=== PATIENT | female | born 1950 | race Caucasian/White ===

== ENCOUNTER 2020-04-08 20:30 | Inpatient (IN) | payer OTHER, MEDICARE, SELFPAY ==
--- NOTE | ~2020-04-08 | CT_ITS ---
EXAMINATION: CT abdomen pelvis w con EXAM DATE: 04/08/2020 21:38 INDICATION: Low abdominal pain. TECHNIQUE: Spiral CT of the abdomen and pelvis was performed following intravenous injection of 100 m L Omnipaque 350. Axial, coronal and sagittal images were reviewed. The dose-length product (DLP) fo r this examination was 463.28 mGy-cm. The exposure was tailored according to patient size (auto mA e xposure control), and iterative reconstruction (ASIR) was used as additional dose reduction technique . Comparison is made to prior examination from 08/17/2012. FINDINGS: The liver, spleen, adrenal glands and pancreas are unremarkable. The gallbladder is disten ded but otherwise unremarkable. There is no biliary duct dilation. Portal and splenic veins are pat ent. Kidneys enhance symmetrically. There is no hydronephrosis. The uterus is anteverted and morp hologically normal. The bladder is unremarkable. There is no retroperitoneal or pelvic lymphadenop athy. There is mild scattered arteriosclerotic disease. Appendix is dilated, fluid-filled with dehiscent wall in the mid aspect, small foci of extraluminal g as contiguous to this. This appears to be a contained perforation, associated phlegmon without organi zed abscess. The stomach and small bowel are unremarkable. There is expected amount of colonic stoo l. No free intraperitoneal gas. The heart is normal in size. There are no pericardial or pleural effusions. The lung bases are unremarkable. There are no osteoblastic or osteolytic lesions identi fied. IMPRESSION: Acute appendicitis with contained perforation. Reviewed, dictated and finalized at location B.
[2020-04-08 20:34] VITALS: BP 127/64; PULSE 92; RESP 18; TEMP 36.6; O2SAT 99
--- NOTE | 2020-04-08 20:41 | ECG_ITS ---
Measurements Intervals [place] Rate: 86 P: 23 NV: 163 QRS: -5 QRSD: 92 T: 59 QT: 382 QTc: 459 Interpretive Statements SINUS RHYTHM NONSPECIFIC ST & T-WAVE ABNORMALITY- DIFFUSE LEADS BASELINE ARTIFACT- I, II, III, AVR, AVL, AVF, V1-V3 BORDERLINE ECG Electronically Signed On 04-09-2020 6:43:37 CDT by José Echevarria D.O.
[2020-04-08] MEDS: SODIUM CHLORIDE 0.9% IV 1,000 ML 999 ML IV CONT (20:59)
[2020-04-08 21:06] LABS: Basophils Absolute Auto 0.1 K/mm3 (0.0-0.1); Basophils Percent Auto 0.3 % (0.2-1.2); Eosinophils Absolute Auto 0.1 K/mm3 (0-0.3); Eosinophils Percent Auto 0.6 % (0-4.4); Hematocrit 37.4 % (37.0-47.0); Hemoglobin 12.1 g/dL (12.0-15.0); Immature Granulocyte Absolute 0.12 K/mm3 (0.00-0.031); Immature Granulocyte Percent A 0.6 % (0-0.5); Lymphocytes Absolute Auto 1.76 K/mm3 (0.9-3.2); Lymphocytes Percent Auto 8.5 % (18.3-44.2); Mean Corpuscular HGB Conc 32.4 g/dl (32-36); Mean Corpuscular Hemoglobin 30.9 pg (26-34); Mean Corpuscular Volume 95.7 fl (80-100); Monocytes Percent Auto 9.6 % (2.6-8.5); Neutrophils Absolute Auto 16.6 K/mm3 (1.3-6.7); Neutrophils Percent Auto 80.4 % (45.5-73.1); Platelet Count Result 275 k/mm3 (150-375); Red Blood Count 3.91 M/mm3 (4.2-5.4); Red Cell Distribution Width 12.4 % (11.5-14.5); White Blood Count 20.6 K/mm3 (4.5-10.0)
[2020-04-08 21:12] LABS: Add Urine Microscopic? YES; Appearance Urine Clear (Clear); Bilirubin Urine Negative (Negative); Blood Urine 2+ (Negative); Color Urine Yellow (Yellow); Glucose Urine UA Negative (Negative); Ketones Urine Negative (Negative); Leukocyte Esterase Ur 1+ LEU/UL (Negative); Mucus Urine Rare /lpf; Nitrate Urine Negative (Negative); Protein Urine 1+ mg/dL (Negative); Specific Grav Ur 1.018 (1.001-1.035); Squamous Epithelial Cell Urine Many /hpf (Few); Urobilinogen Urine Negative mg/dL (<2.0)
[2020-04-08 21:18] LABS: Alanine Aminotransferase 10 U/L (4-35); Albumin Level 4.1 g/dL (3.5-5.1); Alkaline Phosphatase 95 U/L (38-126); Aspartate Amino Transferase 16 U/L (14-36); Bilirubin,Total 0.4 mg/dL (0.2-1.3); Blood Urea Nitrogen 26 mg/dL (7-17); Calcium 8.9 mg/dL (8.4-10.2); Carbon Dioxide 23 mmol/L (22-30); Chloride 103 mmol/L (98-107); Estimated CRCL calculation 27 ml/min; Estimated Glomerular Filt Rate 32; Glucose 121 mg/dL (65-105); Lipase 27 U/L (23-300); Potassium 3.2 mmol/L (3.4-5.0); Sodium 138 mmol/L (137-145)
[2020-04-08] MEDS: HYDROMORPHONE HCL 1 MG/ML INJ 0.5 MG IV PUSH (22:09)
[2020-04-08] MEDS: ONDANSETRON INJ 4 MG/2 ML VIAL IV PUSH (22:09)
--- NOTE | 2020-04-08 22:30 | ED.ABDPAIN ---
HPI - Abdominal Pain General Chief Complaint: Abdominal Pain Stated Complaint: low abd pain Time Seen by Provider: 04/08/20 20:41 Source: patient Mode of arrival: ambulatory Limitations: no limitations History of Present Illness HPI narrative: 69 years old white female history of hypertension, hyperlipidemia, hypothyroidism. Presents with right lower quadrant pain started yesterday morning. Sharp, constant, gradually getting worse. Patient denies any aggravating or relieving factors. Patient denies radiation of pain, fever, chillsvomiting. Patient reports may be some nausea every now and then. Patient smokes occasionally and drinks occasionally. She is on aspirin.. No history of abdominal surgery. Patient drove herself to the emergency room, no family member at the bedside Related Data Home Medications Medication Instructions Recorded Confirmed alendronate 70 mg tablet 70 mg PO WEEKLY 09/26/19 ascorbate calcium (vitamin C) 500 500 mg PO DAILY 09/26/19 mg tablet aspirin 81 mg tablet,delayed 81 mg PO DAILY 09/26/19 release Allergies Allergy/AdvReac Type Severity Reaction Status Date / Time No Known Allergies Allergy Verified 04/08/20 20:37 Review of Systems Review of Systems: Narrative: CONSTITUTIONAL: Denies fever, chills, or sweats. EYES: Denies visual changes, redness, or discharge. ENT: Denies rhinorrhea, congestion, sore throat, or otalgia. CARDIOVASCULAR: Denies chest pain, palpitations, or edema. RESPIRATORY: Denies cough or dyspnea. GASTROINTESTINAL: Denies abdominal pain, nausea, vomiting, or diarrhea. GENITOURINARY: Denies dysuria or hematuria. SKIN: Denies rash or itching. MUSCULOSKELETAL: Denies back pain, joint pain, or myalgia. NEUROLOGIC: Denies headache, numbness, or weakness. PSYCHIATRIC: Denies anxiety or depression. [facility] Surgical History Surgical History H/O cataract extraction H/O tubal ligation Hx of tonsillectomy Family History Family History Mother Diabetes mellitus Hypertension Family history of coronary artery disease Father Family history of malignant neoplasm of urinary bladder Social History Social History Smoking status: Current every day smoker Alcohol intake: current Exam Narrative: Exam Narrative: General appearance: Well-developed, well-nourished Skin: Normal color Head: Normocephalic, nontraumatic Eyes: Clear conjunctiva ENT: Oropharynx normal, ears normal, nose normal Neck: Supple, nontender Chest and respiratory: Airway patent, no respiratory distress, no accessory muscle use Heart: Regular rate/rhythm Abdomen: Soft, mild tenderness with deep palpation right lower quadrant, no guarding or rebound, no organomegaly, quiet bowel sounds Vascular: Normal peripheral pulses, normal capillary refill. Musculoskeletal: Normal range of motion, nontender back Neurologic: Alert and oriented ?3, [employer] is normal as tested, no gross motor deficit Course Course Emergency Course: Stable Vital Signs Vital signs: Vital Signs Temperature 36.6 C 04/08/20 20:34 Pulse Rate 92 04/08/20 20:34 Respiratory Rate 18 04/08/20 20:34 Blood Pressure 127/64 04/08/20 20:34 Pulse Oximetry 99 04/08/20 20:34 Temperature 36.6 C 04/08/20 20:34 Pulse Rate 92 04/08/20 20:34 Respiratory Rate 18 04/08/20 20:34 Blood Pressure 127/64 04/08/20 20:34 Pulse Oximetry 99 04/08/20 20:34 MDM - Abdominal Pain MDM Narrative Medical decision making narrative: Patient presents with right lower quadrant pain, acute appendici
[2020-04-08 23:10] VITALS: BP 138/77; PULSE 77; RESP 18; TEMP 36.7; O2SAT 99
[2020-04-08] MEDS: POTASSIUM CHLORIDE 20 MEQ PACKET (FOR LIQUID) 40 MEQ PO (23:11)
[2020-04-08 23:20] VITALS: BP 113/54; PULSE 98; RESP 18; TEMP 36.4; O2SAT 95; BMI 29.8
--- NOTE | 2020-04-08 23:34 | ADMGEN ---
This patient, Tiffany Canales, was admitted to 3 [facility] Surg Room 313-01. Patient/family oriented to hospital policies and general routines including ID bracelet, bed and alarms, visiting hours, pain management, procedures, bathroom and other care routines, personal items, smoking policy, room service/diet, and visiting hours. Valuables list has been completed. Information on how to activate the Rapid Response Team has been discussed. Patient/Family are encouraged to report perceived risks to care and to ask questions if they do not understand what they are told or what they should do.
[2020-04-09] MEDS: HYDROMORPHONE HCL 1 MG/ML INJ 0.5 MG IV PUSH ×2 (00:41→05:47)
[2020-04-09] MEDS: LACTATED RINGERS 1,000 ML 150 ML IV CONT ×2 (00:42→05:45)
[2020-04-09 05:50] LABS: Basophils Percent Auto 0.3 % (0.2-1.2); Eosinophils Absolute Auto 0.1 K/mm3 (0-0.3); Eosinophils Percent Auto 0.6 % (0-4.4); Hematocrit 33.5 % (37.0-47.0); Hemoglobin 10.5 g/dL (12.0-15.0); Immature Granulocyte Absolute 0.09 K/mm3 (0.00-0.031); Immature Granulocyte Percent A 0.7 % (0-0.5); Lymphocytes Absolute Auto 1.15 K/mm3 (0.9-3.2); Lymphocytes Percent Auto 9.1 % (18.3-44.2); Mean Corpuscular HGB Conc 31.3 g/dl (32-36); Mean Corpuscular Hemoglobin 30.8 pg (26-34); Mean Corpuscular Volume 98.2 fl (80-100); Monocytes Absolute Auto 1.1 K/mm3 (0.1-0.6); Monocytes Percent Auto 8.7 % (2.6-8.5); Neutrophils Absolute Auto 10.2 K/mm3 (1.3-6.7); Neutrophils Percent Auto 80.6 % (45.5-73.1); Platelet Count Result 221 k/mm3 (150-375); Red Blood Count 3.41 M/mm3 (4.2-5.4); Red Cell Distribution Width 12.5 % (11.5-14.5); White Blood Count 12.7 K/mm3 (4.5-10.0)
[2020-04-09 06:00] VITALS: BP 102/50; PULSE 73; RESP 18; TEMP 36.4; O2SAT 95
[2020-04-09 06:07] LABS: Blood Urea Nitrogen 20 mg/dL (7-17); Calcium 7.9 mg/dL (8.4-10.2); Carbon Dioxide 25 mmol/L (22-30); Chloride 109 mmol/L (98-107); Estimated CRCL calculation 38 ml/min; Estimated Glomerular Filt Rate 44; Glucose 95 mg/dL (65-105); Potassium 3.8 mmol/L (3.4-5.0); Sodium 140 mmol/L (137-145)
[2020-04-09] MEDS: ATORVASTATIN 10 MG TABLET PO (10:17)
[2020-04-09] MEDS: FAMOTIDINE 20 MG/2 ML VIAL IV PUSH ×2 (10:18→21:07)
[2020-04-09] MEDS: ENOXAPARIN 40 MG/0.4 ML SYRINGE SUB-Q (10:18)
[2020-04-09] MEDS: CITALOPRAM HYDROBROMIDE 20 MG TABLET PO (10:18)
[2020-04-09] MEDS: LEVOTHYROXINE SODIUM 50 MCG TABLET PO (10:19)
[2020-04-09] MEDS: lisinopriL 5 MG TABLET PO (10:19)
[2020-04-09 10:20] VITALS: PULSE 73
[2020-04-09] MEDS: METOPROLOL TARTRATE 25 MG TABLET PO (10:20)
[2020-04-09] MEDS: KCL 20 MEQ/LR 1,000 ML 100 ML IV CONT ×2 (10:28→22:43)
--- NOTE | 2020-04-09 12:04 | PM.IMHP ---
H&P: HPI History of Present Illness Chief complaint: Ruptured appendicitis Narrative: Tiffany Canales is a 69 year old female Came to the emergency room last night with complaints of 36 hours of abdominal pain in the right lower quadrant. This started Thursday morning. It was sharp constant and getting worse. She did not notice any fever or chills but was having occasional nausea. No vomiting. In the emergency room, she was noted to have some tenderness in the right lower quadrant. She was afebrile with normal vital signs. Her white blood cell count was elevated to 20,000. she had a CT scan of the abdomen and pelvis which suggested acute appendicitis with a walled-off appendiceal perforation and some free air in the vicinity of the appendix. The patient appeared nontoxic with normal vital signs. Her creatinine was 1.6. She was given IV fluids, analgesics and started on Zosyn antibiotics. This morning she is still having some pain but it responds well to analgesics. Her white count has decreased to 12,700. Her creatinine is decreased to 1.2. She is admitted now with right lower quadrant pain and evidence of acute perforated appendicitis that is walled off. Her only previous abdominal surgery was a tubal ligation. Review of Systems Review of Systems: All systems reviewed & are unremarkable except as noted in HPI and below Constitutional: Constitutional: Denies headache(s) Eyes: Eyes: Reports other ( History of retinal vein branch occlusion earlier this year) ENT: Denies headache(s) Cardiovascular: Cardiovascular: Denies chest pain and Denies dyspnea Respiratory: Respiratory: Denies cough and Denies dyspnea Gastrointestinal: Gastrointestinal: Reports as per HPI, Reports abdominal pain, Denies bloating, Denies constipation, Denies nausea and Denies vomiting Neurologic: Denies confusion and Denies headache(s) Psychiatric: Psychiatric: Denies confusion [facility] Surgical History Surgical History H/O cataract extraction H/O tubal ligation Hx of tonsillectomy Family History Family History Mother Diabetes mellitus Hypertension Family history of coronary artery disease Father Family history of malignant neoplasm of urinary bladder Social History Social History Smoking status: Current some day smoker Tobacco type: cigarettes Additional smoking assessment comments: pt states social smoking Alcohol intake: current Drinks per week: 5 Substance use: never Gender identity (if verbalized by the patient): Female Spiritual care concerns: No Meds Home Medications and Allergies Home Medications Medication Instructions Recorded Confirmed Type ascorbate calcium (vitamin C) 500 500 mg PO DAILY 09/26/19 04/09/20 History mg tablet aspirin 81 mg tablet,delayed 81 mg PO HS 09/26/19 04/09/20 History release atorvastatin 10 mg tablet 10 mg PO DAILY #90 tablet 10/17/19 04/09/20 Rx cholecalciferol (vitamin D3) 25 2,000 unit PO DAILY #90 cap 10/17/19 04/08/20 Rx mcg (1,000 unit) capsule citalopram 20 mg tablet 20 mg PO DAILY #90 tablet 10/17/19 04/08/20 Rx furosemide 20 mg tablet 20 mg PO QAM #90 tablet 10/17/19 04/08/20 Rx levothyroxine 50 mcg tablet 50 mcg PO DAILY #90 tablet 10/17/19 04/08/20 Rx metoprolol tartrate 25 mg tablet 25 mg PO DAILY #90 tablet 10/17/19 04/08/20 Rx lisinopril 10 0.5 tablet PO DAILY #90 tablet 03/02/20 04/08/20 Rx mg-hydrochlorothiazide 12.5 mg tablet amitriptyline 25 mg PO HS 04/09/20 04/09/20 History clonazepam 0.5 mg PO HS 04/09/20 04/08/20 History Allergies Allergy/AdvReac Type Severity Reaction Status Date / Time No Known Allergies Allergy Verified 04/08/20 20:37 Vital Signs Vital Signs - 24 hr 04/08/20 20:34 04/08/20 23:10 04/08/20 23:20 Temperature 36.6 C 36.7 C 36.4 C Pulse Rate 92 77
[2020-04-09] MEDS: hydroCHLOROthiazide 6.25 MG TABLET PO (12:45)
[2020-04-09 14:00] VITALS: BP 105/61; PULSE 76; RESP 18; TEMP 37.1; O2SAT 97
[2020-04-09] MEDS: MORPHINE SULFATE 2 MG/ML INJ IV PUSH ×2 (15:28→21:11)
[2020-04-09] MEDS: AMITRIPTYLINE HCL 25 MG TABLET PO (21:07)
[2020-04-09] MEDS: ASPIRIN 81 MG ENTERIC TABLET PO (21:07)
[2020-04-09] MEDS: CLONAZEPAM 0.5 MG TAB PO (21:07)
[2020-04-09 22:10] VITALS: BP 117/46; PULSE 64; RESP 18; TEMP 36.6; O2SAT 98
[2020-04-10] VITALS (13 sets, daily range): BP systolic 100–140; BP diastolic 50–79; PULSE 59–88; RESP 12–20; TEMP 36.6–37.6; O2SAT 92–100
[2020-04-10] MEDS: LEVOTHYROXINE SODIUM 50 MCG TABLET PO (06:20)
[2020-04-10] MEDS: METOPROLOL TARTRATE 25 MG TABLET PO (06:20)
[2020-04-10 06:36] LABS: Hemoglobin 10.4 g/dL (12.0-15.0); Mean Corpuscular HGB Conc 31.5 g/dl (32-36); Mean Corpuscular Hemoglobin 31.2 pg (26-34); Mean Corpuscular Volume 99.1 fl (80-100); Mean Platelet Volume 10.2 fl (7.4-10.4); Platelet Count Result 230 k/mm3 (150-375); Red Blood Count 3.33 M/mm3 (4.2-5.4); Red Cell Distribution Width 12.4 % (11.5-14.5)
[2020-04-10] MEDS: MORPHINE SULFATE 2 MG/ML INJ IV PUSH (06:54)
[2020-04-10 06:55] LABS: Blood Urea Nitrogen 11 mg/dL (7-17); Calcium 8.4 mg/dL (8.4-10.2); Carbon Dioxide 28 mmol/L (22-30); Chloride 109 mmol/L (98-107); Estimated CRCL calculation 45 ml/min; Estimated Glomerular Filt Rate 55; Glucose 87 mg/dL (65-105); Potassium 4.1 mmol/L (3.4-5.0); Sodium 140 mmol/L (137-145)
--- NOTE | 2020-04-10 07:23 | PM.PNGS ---
Progress Note: A&P Assessment and Plan (1) Perforated appendix: Code(s): K35.32 - Acute appendicitis with perforation and localized peritonitis, without abscess Status: Acute Assessment and Plan: Although white count is now normal and creatinine is normal, patient still having pain and tenderness with peritoneal signs in the right mid abdomen where she has been tender since admission. She still is taking pain medication. I do not think she is improving adequately with medical therapy and will go ahead with laparoscopic appendectomy this morning. I did discuss the procedure with her. She is fully agreeable to going ahead. The procedure the risks the benefits the usual recovery and the possibility of a drain after surgery have all been discussed. All questions were answered. (2) Essential (primary) hypertension: Code(s): I10 - Essential (primary) hypertension Status: Chronic Assessment and Plan: continue to monitor (3) Smoker: Code(s): F17.200 - Nicotine dependence, unspecified, uncomplicated Status: Chronic Assessment and Plan: Increases surgical risk (4) CHANTAL (acute kidney injury): Code(s): N17.9 - Acute kidney failure, unspecified Status: Resolved Subjective Subjective Date/Time Seen: 04/10/20 07:23 Patient reports: still having pain (Patient still having quite a bit of right mid abdominal pain. Taking pain meds.) and afebrile Review of Systems Review of Systems: All systems reviewed & are unremarkable except as noted in HPI and below Constitutional: Constitutional: Denies headache(s) Cardiovascular: Cardiovascular: Denies chest pain and Denies dyspnea Respiratory: Respiratory: Denies cough and Denies dyspnea Gastrointestinal: Gastrointestinal: Reports as per HPI Neurologic: Denies confusion and Denies headache(s) Exam Const: General: comfortable and no acute distress; No confusion Orientation/consciousness: patient oriented x3 and No confusion GI: Inspection: non-distended GI Palp: Yes Soft to palpation, Yes Tenderness to palpation present (GI) ( Right mid abdomen, same place as before, really no better.), Yes Guarding due to palpation present (GI) and No Rebound tenderness present Auscultation: normal bowel sounds Neuro: General: patient oriented x3, no focal motor deficits and No confusion Psych: Affect: normal affect Insight: Good insight present (Psych) Judgement: Good judgement present (Psych) Objective Data Vital Signs Vital Signs: Vital Signs - 24 hr 04/09/20 10:20 04/09/20 14:00 04/09/20 22:10 Temperature 37.1 C 36.6 C Pulse Rate 73 76 64 Respiratory Rate 18 18 Blood Pressure 105/61 117/46 L Pulse Oximetry 97 98 04/10/20 06:00 04/10/20 06:20 Temperature 36.9 C Pulse Rate 70 64 Respiratory Rate 18 Blood Pressure 116/54 L Pulse Oximetry 98 Intake/Output Intake/Output: Intake & Output 04/07/20 04/08/20 04/09/20 04/10/20 23:59 23:59 23:59 23:59 Intake Total 1050 3286 520 Output Total 450 1000 Balance 1050 1906 -480 Meds/Results Medications: Active Medications Generic Name Dose Route Start Last Admin Trade Name Freq PRN Reason Stop Dose Admin Acetaminophen 500 mg 04/09/20 08:09 Tylenol Tablet PO Q6H PRN Mild Pain (1-3) or Fever Amitriptyline HCl 25 mg 04/09/20 21:00 04/09/20 21:07 Elavil PO 25 mg HS XIOMARA Administration Aspirin 81 mg 04/09/20 21:00 04/09/20 21:07 Aspirin Ec PO 81 mg HS XIOMARA Administration Atorvastatin Calcium 10 mg 04/09/20 09:00 04/09/20 10:17 Lipitor PO 10 mg DAILY XIOMARA Administration Citalopram Hydrobromide 20 mg 04/09/20 09:00 04/09/20 10:18 Celexa PO 20 mg DAILY XIOMARA Administration Clonazepam 0.5 mg 04/09/20 21:00 04/09/20 21:07 Klonopin Tablet PO 0.5 mg HS XIOMARA Administration Enoxaparin Sodium 40 mg 04/09/20 09:00 04/09/20 10:18 Lovenox SUB-Q 40 mg DAILY XIOMARA Admini
[2020-04-10] MEDS: LACTATED RINGERS 1,000 ML 30 ML IV CONT ×2 (08:03→11:11)
--- NOTE | 2020-04-10 08:18 | WPDANESEPPF ---
Anes - Initial Pre Proc Eval Procedure: Operation Date: 04/10/20 09:00 Proposed Procedures p Laparoscopic Appendectomy - Shaheen Wu MD Date/Time: 04/10/20 08:18 Surgeon: Shaheen Wu MD Pre Op Diagnosis: Perforated appendix, Leukocytosis Patient Data Age: 69 Gender: F Height: 1.6 m Weight: 76.4 kg Last Vital Signs Temp 37.2 C 04/10/20 07:59 Pulse 62 04/10/20 07:59 Resp 16 04/10/20 07:59 BP 115/60 04/10/20 07:59 Pulse Ox 96 04/10/20 07:59 Allergies Allergy/AdvReac Type Severity Reaction Status Date / Time No Known Allergies Allergy Verified 04/08/20 20:37 Home Medications Medication Instructions Recorded Confirmed Type ascorbate calcium (vitamin C) 500 500 mg PO DAILY 09/26/19 04/09/20 History mg tablet aspirin 81 mg tablet,delayed 81 mg PO HS 09/26/19 04/09/20 History release atorvastatin 10 mg tablet 10 mg PO DAILY #90 tablet 10/17/19 04/09/20 Rx cholecalciferol (vitamin D3) 25 2,000 unit PO DAILY #90 cap 10/17/19 04/08/20 Rx mcg (1,000 unit) capsule citalopram 20 mg tablet 20 mg PO DAILY #90 tablet 10/17/19 04/08/20 Rx furosemide 20 mg tablet 20 mg PO QAM #90 tablet 10/17/19 04/08/20 Rx levothyroxine 50 mcg tablet 50 mcg PO DAILY #90 tablet 10/17/19 04/08/20 Rx metoprolol tartrate 25 mg tablet 25 mg PO DAILY #90 tablet 10/17/19 04/08/20 Rx lisinopril 10 0.5 tablet PO DAILY #90 tablet 03/02/20 04/08/20 Rx mg-hydrochlorothiazide 12.5 mg tablet amitriptyline 25 mg PO HS 04/09/20 04/09/20 History clonazepam 0.5 mg PO HS 04/09/20 04/08/20 History Laboratory Tests 04/10/20 04/10/20 06:06 06:06 WBC 9.0 K/mm3 K/mm3 (4.5-10.0) RBC 3.33 M/mm3 L M/mm3 (4.2-5.4) Hgb 10.4 g/dL L g/dL (12.0-15.0) Hct 33.0 % L % (37.0-47.0) MCV 99.1 fl fl (80-100) MCH 31.2 pg pg (26-34) MCHC 31.5 g/dl L g/dl (32-36) RDW 12.4 % % (11.5-14.5) Plt Count 230 k/mm3 k/mm3 (150-375) MPV 10.2 fl fl (7.4-10.4) Sodium 140 mmol/L mmol/L (137-145) Potassium 4.1 mmol/L mmol/L (3.4-5.0) Chloride 109 mmol/L H mmol/L (98-107) Carbon Dioxide 28 mmol/L mmol/L (22-30) BUN 11 mg/dL D mg/dL (7-17) Creatinine 1.00 mg/dL mg/dL (0.7-1.0) Estim Creat Clear Calc 45 ml/min ml/min Estimated GFR 55 L (59 - ) Glucose 87 mg/dL mg/dL (65-105) Calcium 8.4 mg/dL mg/dL (8.4-10.2) Patient hx anesthesia problems: none Family hx anesthesia problems: none PMFSH Surgical History Surgical History H/O cataract extraction H/O tubal ligation Hx of tonsillectomy Family History Family History Mother Diabetes mellitus Hypertension Family history of coronary artery disease Father Family history of malignant neoplasm of urinary bladder Social History Social History Smoking status: Current some day smoker Tobacco type: cigarettes Additional smoking assessment comments: pt states social smoking Alcohol intake: current Drinks per week: 5 Substance use: never Gender identity (if verbalized by the patient): Female Spiritual care concerns: No Anes - Eval Final PreProcedure Day of Procedure 04/10/20 08:18 Patient weight: overweight Heart: regular rate and rhythm Lungs: clear to auscultation and normal air movement Airway: Mallampati scale class III Neurological: alert and oriented Last oral intake: >/= 8 hours ASA classification: III Emergent: no Anesthetic plan: proceed Anesthesia type and monitoring: general ETT and standard monitoring Informed Consent: The patient's anesthetic plan and its attendant risks and benefits were discussed with the patient/family/POA. Questions were solicited and answers provided to the satisfaction of the patient/family/
--- NOTE | 2020-04-10 08:41 | SUR.PREOP ---
Up to bathroom.
[2020-04-10] MEDS: BUPIVACAINE/EPINEPHRINE 0.5% 30 ML VIAL INFILTRATE (09:36)
--- NOTE | 2020-04-10 11:00 | SUR.OPER ---
Ebl=50ml
--- NOTE | 2020-04-10 11:40 | PM.PROC ---
Procedure Note - Detailed Date of procedure: 04/10/20 Pre-op diagnosis: Perforated appendix Ruptured appendicitis Post-op diagnosis: same Procedure performed: laparoscopic appendectomy for ruptured appendicitis Description of procedure: patient was taken to the operating room placed in a supine position. She was induced into general anesthesia. The entire abdomen was prepped and draped. Trocars were placed in the usual fashion using 0.5% Marcaine with epinephrine and applied Medical optical trocars. Three trocars were placed initially all along the left side of the abdomen. The left lower quadrant trocar was a 10 11 port. we then insufflated and placed the patient in Trendelenburg with the right side elevated. 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 There was also additional adhesions binding the ascending colon and the appendix retroperitoneally. As expected on the CT scan, the appendix was walled off by surrounding structures. I placed an additional 5 mm port in the right upper quadrant. With blunt dissection and some cautery, I was able to start the dissection of the appendix. The terminal ileum was forming the medial wall of the contained perforation. This was gently dissected away. Cautery was used for hemostasis. Then when the appendix was exposed, I tried to elevate the proximal portion of the appendix and it came apart at the area where it had perforated. There was a lot of gangrenous change and inflammatory change as 1 might expect. I did mobilize the ascending colon somewhat so that the cecum and appendix would be more accessible. The ascending colon actually headed towards the feet and walled off the appendix at its lateral aspect. This required very careful dissection and was difficult to recognize initially. As dissection was continued however I was able to remove the gangrenous appendix fragments from the ascending colon. After freeing mesoappendix and all of the appendix other than the initial 1 to 1-1/2 cm, I removed these pieces of appendix in an Endo-Catch bag. This left only the origin of the appendix and possibly another cm or cm and a half of the very proximal appendix. I mobilized the cecum in this area. I replaced the 10 11 left lower quadrant port with a 12 mm port. an Endo-NATALIE was then used to amputate the into the cecum containing the appendiceal stump. This went well. There was really no bleeding from the staple line. The cecum and appendiceal stump were also placed in an Endo-Catch bag and retrieved from the left lower quadrant. We then replaced the left lower quadrant trocar. The area of the walled-off appendix was repeatedly irrigated and suctioned. I inspected the area thoroughly and repeatedly for any signs of bowel injury, enteric content, or bleeding. None was seen. Once the area was as clean as I could make it with irrigation and suctioning, I placed a 19 Faroese Sergio drain through the right upper quadrant trocar. The drain was then positioned in the location where the appendix had been walled off. The drain was sutured to the skin with 2 0 silk. We closed the 12 mm left lower quadrant port at the fascial level with a Abhinav cone and Abhinav Arslan suture pass device. 0 Vicryl was used for this. One last check of the area of the appendiceal dissection was done. All looked satisfactory. We then evacuated CO2 and removed the remaining trocar sleeves. The drain was placed to bulb suction. Skin incisions were closed with subcuticular 4 O Monocryl skin suture. The wounds were dressed with Exofin surgical adhesive. A drain sponge was placed over the FABRICE drain exit site. The patient was awakened and taken to recovery in good condition. Sponge and needle counts were correct x2. No complications were noted. The patient tolerated the procedure well. Anesthesia: GETA and MAC ( 0.5% Marcain
[2020-04-10] MEDS: ONDANSETRON INJ 4 MG/2 ML VIAL IV PUSH (11:47)
[2020-04-10] MEDS: CITALOPRAM HYDROBROMIDE 20 MG TABLET PO (13:17)
[2020-04-10] MEDS: lisinopriL 5 MG TABLET PO (13:18)
[2020-04-10] MEDS: FUROSEMIDE 20 MG TABLET PO (13:18)
[2020-04-10] MEDS: ENOXAPARIN 40 MG/0.4 ML SYRINGE SUB-Q (13:19)
[2020-04-10] MEDS: FAMOTIDINE 20 MG/2 ML VIAL IV PUSH ×2 (13:19→20:30)
[2020-04-10] MEDS: ATORVASTATIN 10 MG TABLET PO (13:19)
[2020-04-10] MEDS: hydroCHLOROthiazide 6.25 MG TABLET PO (14:15)
[2020-04-10] MEDS: KCL 20 MEQ/LR 1,000 ML 100 ML IV CONT (16:26)
[2020-04-10] MEDS: AMITRIPTYLINE HCL 25 MG TABLET PO (20:30)
[2020-04-10] MEDS: CLONAZEPAM 0.5 MG TAB PO (20:30)
[2020-04-10] MEDS: ASPIRIN 81 MG ENTERIC TABLET PO (20:30)
[2020-04-11] VITALS: BP 121/60; PULSE 81; RESP 20; TEMP 36.8; O2SAT 100
[2020-04-11] MEDS: KCL 20 MEQ/LR 1,000 ML 100 ML IV CONT (02:02)
[2020-04-11 06:00] VITALS: BP 127/67; PULSE 78; RESP 16; TEMP 36.6; O2SAT 94
[2020-04-11] MEDS: LEVOTHYROXINE SODIUM 50 MCG TABLET PO (06:14)
[2020-04-11 06:42] LABS: Hematocrit 30.9 % (37.0-47.0); Hemoglobin 9.8 g/dL (12.0-15.0); Mean Corpuscular HGB Conc 31.7 g/dl (32-36); Mean Corpuscular Hemoglobin 31.2 pg (26-34); Mean Corpuscular Volume 98.4 fl (80-100); Mean Platelet Volume 10.3 fl (7.4-10.4); Platelet Count Result 260 k/mm3 (150-375); Red Blood Count 3.14 M/mm3 (4.2-5.4); Red Cell Distribution Width 12.3 % (11.5-14.5); White Blood Count 10.9 K/mm3 (4.5-10.0)
[2020-04-11 06:55] LABS: Blood Urea Nitrogen 12 mg/dL (7-17); Calcium 8.4 mg/dL (8.4-10.2); Carbon Dioxide 26 mmol/L (22-30); Chloride 104 mmol/L (98-107); Estimated CRCL calculation 38 ml/min; Estimated Glomerular Filt Rate 44; Glucose 126 mg/dL (65-105); Potassium 4.5 mmol/L (3.4-5.0); Sodium 138 mmol/L (137-145)
--- NOTE | 2020-04-11 07:28 | PM.PNGS ---
Progress Note: A&P Assessment and Plan (1) Perforated appendix: Code(s): K35.32 - Acute appendicitis with perforation and localized peritonitis, without abscess Status: Acute Assessment and Plan: doing well postop day 1. Advance to soft diet. Continue IV antibiotics. Increase activity. Recheck labs again tomorrow. Subjective Subjective Date/Time Seen: 04/11/20 07:28 Post Op day: 1 Patient reports: no new complaints, feels better, tolerating liquids well and afebrile Review of Systems Review of Systems: All systems reviewed & are unremarkable except as noted in HPI and below Constitutional: Constitutional: Denies headache(s) Cardiovascular: Cardiovascular: Denies chest pain and Denies dyspnea Respiratory: Respiratory: Denies cough and Denies dyspnea Gastrointestinal: Gastrointestinal: Reports as per HPI Exam Const: General: comfortable and no acute distress; No confusion Orientation/consciousness: patient oriented x3 and No confusion GI: Inspection: non-distended and incision ( all incisions healing well) GI Palp: Yes Soft to palpation, Yes Tenderness to palpation present (GI) ( incisional tenderness), No Guarding due to palpation present (GI) and No Rebound tenderness present Auscultation: normal bowel sounds Neuro: General: patient oriented x3, no focal motor deficits and No confusion Extrem: General: no calf tenderness and no edema Psych: Affect: normal affect Insight: Good insight present (Psych) Judgement: Good judgement present (Psych) Objective Data Vital Signs Vital Signs: Vital Signs - 24 hr 04/10/20 07:59 04/10/20 11:11 04/10/20 11:26 Temperature 37.2 C 36.8 C Pulse Rate 62 65 63 Respiratory Rate 16 18 17 Blood Pressure 115/60 114/50 L 100/58 L Pulse Oximetry 96 100 98 04/10/20 11:41 04/10/20 11:56 04/10/20 12:11 Temperature Pulse Rate 63 59 L 64 Respiratory Rate 13 14 12 Blood Pressure 104/56 L 112/60 102/59 L Pulse Oximetry 95 94 92 04/10/20 12:28 04/10/20 12:50 04/10/20 13:35 Temperature 36.6 C Pulse Rate 63 64 66 Respiratory Rate 15 18 18 Blood Pressure 115/62 119/62 140/59 L Pulse Oximetry 96 98 96 04/10/20 18:12 04/10/20 20:00 06/24/20 00:00 Temperature 37.6 C 36.6 C 36.8 C Pulse Rate 88 80 81 Respiratory Rate 16 20 20 Blood Pressure 120/79 133/63 121/60 Pulse Oximetry 100 99 100 04/11/20 06:00 Temperature 36.6 C Pulse Rate 78 Respiratory Rate 16 Blood Pressure 127/67 Pulse Oximetry 94 Intake/Output Intake/Output: Intake & Output 04/08/20 04/09/20 04/10/20 04/11/20 23:59 23:59 23:59 23:59 Intake Total 1050 3286 3750 1426 Output Total 450 1840 1230 Balance 1050 2836 1910 196 Meds/Results Medications: Active Medications Generic Name Dose Route Start Last Admin Trade Name Freq PRN Reason Stop Dose Admin Acetaminophen 500 mg 04/09/20 08:09 Tylenol Tablet PO Q6H PRN Mild Pain (1-3) or Fever Hydrocodone Bitart/Acetaminophen 1 tab 04/10/20 12:34 [place] 5-325 Mg PO Q4H PRN Pain Rated 4-6 Hydrocodone Bitart/Acetaminophen 1 tab 04/10/20 12:34 04/11/20 06:13 [place] 10-325 Mg PO 1 tab Q4H PRN Administration Pain Rated 7-10 Amitriptyline HCl 25 mg 04/09/20 21:00 04/10/20 20:30 Elavil PO 25 mg HS XIOMARA Administration Aspirin 81 mg 04/09/20 21:00 04/10/20 20:30 Aspirin Ec PO 81 mg HS XIOMARA Administration Atorvastatin Calcium 10 mg 04/09/20 09:00 04/10/20 13:19 Lipitor PO 10 mg DAILY XIOMARA Administration Citalopram Hydrobromide 20 mg 04/09/20 09:00 04/10/20 13:17 Celexa PO 20 mg DAILY XIOMARA Administration Clonazepam 0.5 mg 04/09/20 21:00 04/10/20 20:30 Klonopin Tablet PO 0.5 mg HS XIOMARA Administration Enoxaparin Sodium 40 mg 04/09/20 09:00 04/10/20 13:19 Lovenox SUB-Q 40 mg DAILY XIOMARA Administration Furosemide 20 mg 04/09/20 09:00 04/10/20 13:18 Lasix Tablet PO 20 mg QAM XIOMARA Administration Hyd
--- NOTE | 2020-04-11 08:16 | WPDANESPN ---
Anes - Prog Note Post-Op Date/Time: 04/11/20 08:16 Cardiovascular status: normal Respiratory status: normal Airway patency: baseline Mental status: baseline Post-Op hydration status: normal Vital Signs: Last Vital Signs Temp 36.6 C 04/11/20 06:00 Pulse 78 04/11/20 06:00 Resp 16 04/11/20 06:00 BP 127/67 04/11/20 06:00 Pulse Ox 94 04/11/20 06:00 I/O: Intake & Output 04/10/20 04/11/20 04/11/20 23:59 07:59 15:59 Intake Total 1630 1426 Output Total 840 1230 Balance 790 196 Laboratory Tests 04/11/20 06:18 04/11/20 06:18 04/11/20 04/11/20 06:18 06:18 WBC 10.9 H RBC 3.14 L Hgb 9.8 L Hct 30.9 L MCV 98.4 MCH 31.2 MCHC 31.7 L RDW 12.3 Plt Count 260 MPV 10.3 Sodium 138 Potassium 4.5 Chloride 104 Carbon Dioxide 26 BUN 12 Creatinine 1.20 H Estim Creat Clear Calc 38 Estimated GFR 44 L Glucose 126 H Calcium 8.4 Microbiology 04/08/20 20:54 Unspecified Urine Culture - Final Post-procedural complaints: none Patient Feedback: Patient satisfied with anesthetic care.
[2020-04-11] MEDS: ATORVASTATIN 10 MG TABLET PO (08:38)
[2020-04-11 08:39] VITALS: PULSE 74
[2020-04-11] MEDS: hydroCHLOROthiazide 6.25 MG TABLET PO (08:39)
[2020-04-11] MEDS: METOPROLOL TARTRATE 25 MG TABLET PO (08:39)
[2020-04-11] MEDS: CITALOPRAM HYDROBROMIDE 20 MG TABLET PO (08:39)
[2020-04-11] MEDS: ENOXAPARIN 40 MG/0.4 ML SYRINGE SUB-Q (08:39)
[2020-04-11] MEDS: lisinopriL 5 MG TABLET PO (08:39)
[2020-04-11] MEDS: FAMOTIDINE 20 MG TABLET PO ×2 (09:24→20:39)
[2020-04-11 10:17] VITALS: BP 114/51; PULSE 80; RESP 18; TEMP 36.6; O2SAT 95
[2020-04-11 14:14] VITALS: BP 137/68; PULSE 76; RESP 16; TEMP 36.4; O2SAT 94
[2020-04-11] MEDS: ASPIRIN 81 MG ENTERIC TABLET PO (20:39)
[2020-04-11] MEDS: CLONAZEPAM 0.5 MG TAB PO (20:39)
[2020-04-11] MEDS: AMITRIPTYLINE HCL 25 MG TABLET PO (20:39)
[2020-04-11 22:00] VITALS: BP 132/64; PULSE 69; RESP 20; TEMP 36.5; O2SAT 94
[2020-04-12] MEDS: LEVOTHYROXINE SODIUM 50 MCG TABLET PO (05:53)
[2020-04-12 06:00] VITALS: BP 132/52; PULSE 75; RESP 16; TEMP 36.6; O2SAT 92
[2020-04-12 06:33] LABS: Hemoglobin 9.4 g/dL (12.0-15.0); Mean Corpuscular HGB Conc 31.3 g/dl (32-36); Mean Corpuscular Hemoglobin 30.7 pg (26-34); Mean Platelet Volume 9.6 fl (7.4-10.4); Platelet Count Result 289 k/mm3 (150-375); Red Blood Count 3.06 M/mm3 (4.2-5.4); Red Cell Distribution Width 12.2 % (11.5-14.5); White Blood Count 9.5 K/mm3 (4.5-10.0)
[2020-04-12 06:52] LABS: Blood Urea Nitrogen 14 mg/dL (7-17); Calcium 8.6 mg/dL (8.4-10.2); Carbon Dioxide 30 mmol/L (22-30); Chloride 103 mmol/L (98-107); Estimated CRCL calculation 35 ml/min; Estimated Glomerular Filt Rate 40; Glucose 92 mg/dL (65-105); Potassium 3.9 mmol/L (3.4-5.0); Sodium 136 mmol/L (137-145)
--- NOTE | 2020-04-12 08:24 | PM.DS ---
DS: Admitting Diagnosis Admitting Diagnosis Admitting Diagnosis: Acute appendicitis with perforation and localized peritonitis, without abscess DS: Discharge Diagnosis Discharge Diagnosis (1) Perforated appendix: Code(s): K35.32 - Acute appendicitis with perforation and localized peritonitis, without abscess Status: Acute (2) CHANTAL (acute kidney injury): Code(s): N17.9 - Acute kidney failure, unspecified Status: Resolved (3) Smoker: Code(s): F17.200 - Nicotine dependence, unspecified, uncomplicated Status: Chronic (4) Essential (primary) hypertension: Code(s): I10 - Essential (primary) hypertension Status: Chronic DS: Summary Time Spent with Patient Time attestation: Total time spent providing and/or coordinating discharge services: the patient is a 69-year-old woman who came to the emergency room on April 08 with 36 hours of abdominal pain with right in the right lower quadrant. Pain was sharp and got worse. She did not have any fever chills or vomiting. She did experience some nausea. In the emergency room she was noted to have tenderness in the right lower quadrant [place] [address] scan showed a contained walled off case of appendicitis with perforation. She had some acute kidney injury with creatinine of 1.6. She was started on IV Zosyn and given IV fluids and analgesics. Her creatinine returned to normal as did her white blood cell count. She continued to have pretty severe pain in the right mid abdomen as well as tenderness there. She was taken to surgery on 04/10/2020. She was found to have a ruptured appendix and a difficult laparoscopic appendectomy was performed. The appendix had to be removed in pieces. She also had a partial malrotation and had the appendix well walled off with ascending colon and distal ileum. Pathology did show gangrenous acute appendicitis with perforation. Following surgery, she felt better. She was continued on IV Zosyn. Her pain improved and she was ambulatory, tolerating solid food, and comfortable on oral analgesics by postop day 2. 04/12/2020. She is discharged today 04/12/2020 in good condition. Exam GI: Inspection: incision ( HEALING WELL, FABRICE DRAIN HAS CLOUDY FLUID, white) GI Palp: Yes Soft to palpation and Yes Tenderness to palpation present (GI) ( minimal appropriate tenderness) Auscultation: normal bowel sounds DS: Data Data Completed and Pending Completed studies during hospitalization: Pending at discharge 04/10/20 10:52 Surgical [PTH] Routine Labs on day of discharge: Labs from last 24 hours 04/12/20 04/12/20 06:20 06:20 WBC 9.5 RBC 3.06 L Hgb 9.4 L Hct 30.0 L MCV 98.0 MCH 30.7 MCHC 31.3 L RDW 12.2 Plt Count 289 MPV 9.6 Sodium 136 L Potassium 3.9 Chloride 103 Carbon Dioxide 30 BUN 14 Creatinine 1.30 H Estim Creat Clear Calc 35 Estimated GFR 40 L Glucose 92 Calcium 8.6 Discharge Plan Discharge Attending physician on discharge: Shaheen Wu Discharging Clinician: Shaheen Wu Anticipated Discharge Date/Time: 04/12/20 08:37 Patient Disposition: Home, Self-Care Activity: may shower, no straining and as tolerated Diet: regular Wound Care Instructions: remove dressing to shower and change dressing daily Discharge Instructions: 1. May shower the day after surgery over incisions. 2. Call office for: -Wound increasingly painful or bleeding -Vomiting -Fever of greater than 101 degrees 3. Expect some blood on dressing and old blood on skin. 4. If no bowel movement for three days, take 1 oz. (30 ml) Milk of Magnesia, if no results, take Fleets enema. 5. No heavy lifting > 15-20 pounds for 2 weeks. 6. No driving for 3 days or while taking narcotic pain medications. 7. Up walking 10-30 minutes three times per day.
[2020-04-12] MEDS: CITALOPRAM HYDROBROMIDE 20 MG TABLET PO (08:43)
[2020-04-12] MEDS: FAMOTIDINE 20 MG TABLET PO (08:43)
[2020-04-12] MEDS: lisinopriL 5 MG TABLET PO (08:43)
[2020-04-12] MEDS: ATORVASTATIN 10 MG TABLET PO (08:43)
[2020-04-12 08:44] VITALS: PULSE 76
[2020-04-12] MEDS: METOPROLOL TARTRATE 25 MG TABLET PO (08:44)
[2020-04-12] MEDS: hydroCHLOROthiazide 6.25 MG TABLET PO (08:45)
[2020-04-12] MEDS: ENOXAPARIN 40 MG/0.4 ML SYRINGE SUB-Q (08:45)
[2020-04-12] MEDS: FUROSEMIDE 20 MG TABLET PO (08:45)
== END 2020-04-12 12:35 | disposition home or self-care (01) | DRG 339 ==
LOC: ANHED 22:43 → ANH3MEDSUR 22:50
PROVIDERS: Admitting Provider Surgery; Emergency Provider Emergency Medicine; Visit Provider Surgery
PROC: 0DTJ4ZZ Resection of Appendix, Percutaneous Endoscopic Approach (ICD-10-PCS; CPT 44970; principal; 2020-04-10 09:00)
DX: K35.32 Acute appendicitis with perforation, localized peritonitis, and gangrene, without abscess (principal); N17.9 Acute kidney failure, unspecified; I10 Essential (primary) hypertension; F41.8 Other specified anxiety disorders; E78.2 Mixed hyperlipidemia; F17.210 Nicotine dependence, cigarettes, uncomplicated
CPT/HCPCS: 36415; 74177; 80048; 80053; 81001; 83690; 85025; 85027; 87086; 88304; 93005; 96361; 96365; 96375; 99285; A9270; J0330; J1100; J1170; J1650; J2270; J2370; J2405; J2543; J2704; J2710; J3010; J7030; J7120; Q9967

== ENCOUNTER → 2021-01-29 15:03 | Outpatient (CLI) | payer OTHER, SELFPAY ==
--- NOTE | ~2021-01-29 | MR_ITS ---
EXAMINATION: MR brain/brain stem wo con EXAM DATE: 01/29/2021 17:39 INDICATION: Sudden onset limb pain and urinary incontinence . Left leg, shoulder pain and tingling si nce Thursday. TECHNIQUE: Magnetic resonance imaging (MRI) of the brain/brain stem obtained without contrast. Sagitt al T1, axial diffusion, gradient echo (T2*), T1, T2, FLAIR sequences obtained. There is no prior st udy for comparison. FINDINGS: There are no areas of restricted diffusion to suggest acute infarction. There is no acute hemorrhage seen on the T2*, a hemosiderin sensitive sequence. No intraparenchymal brain mass lesion. Empty sella turcica. There is mild periventricular and subcortical T2/FLAIR signal hyperintensity, nonspecific but probably related to small vessel ischemic disease (microangiopathy). There are no extra-axial collections. Flow voids are seen in the cerebral arteries on the T2-weighted sequences c onsistent with their expected patency. Patient has had bilateral ocular lens surgery. Soft tissue i s unremarkable. IMPRESSION: 1. No acute intracranial findings. 2. Mild microangiopathy Reviewed, dictated and finalized at location A.
[2021-01-29 15:29] LABS: Estimated Glomerular Filt Rate 37
== END ==
PROVIDERS: PCP Family Medicine; Visit Provider Physician Assistant
DX: R32 Unspecified urinary incontinence (principal); R93.0 Abnormal findings on diagnostic imaging of skull and head, not elsewhere classified
CPT/HCPCS: 70551

== ENCOUNTER 2021-03-19 19:03 | Emergency (ER) | payer OTHER, SELFPAY ==
[2021-03-19 19:06] VITALS: BP 138/83; PULSE 74; RESP 12; TEMP 36.6; O2SAT 100
--- NOTE | 2021-03-19 19:09 | ED.SKABFB ---
HPI - Skin/Abscess/Foreign Bdy General Chief complaint: Skin/Abscess/Foreign Body Stated complaint: BLISTER ON R FOOT Time Seen by Provider: 03/19/21 19:09 Source: patient and RN notes reviewed Mode of arrival: ambulatory Limitations: no limitations History of Present Illness HPI narrative: 70-year-old female presents with concern for a blister to the lateral edge of her right foot. Reports the blister has been present for 1 week, reports a blister started as to separate blisters that merged into 1 large blister. Reports today she noticed swelling in her foot surrounding the blister. She reports the area is tender. She denies any drainage, fever, musculoskeletal pain, body aches, malaise, chills. MD complaint: other (Blister) Related Data Home Medications Medication Instructions Recorded Confirmed ascorbate calcium (vitamin C) 500 500 mg PO DAILY 09/26/19 02/04/21 mg tablet aspirin 81 mg tablet,delayed 81 mg PO HS 09/26/19 02/04/21 release Allergies Allergy/AdvReac Type Severity Reaction Status Date / Time No Known Allergies Allergy Verified 02/04/21 16:10 Review of Systems Review of Systems: Narrative: CONSTITUTIONAL: Denies malaise, chills, sweats, or fever. CARDIOVASCULAR: Denies chest pain, palpitations. Reports echo edema RESPIRATORY: Denies cough or dyspnea. SKIN: Reports blister to the right foot MUSCULOSKELETAL: Denies musculoskeletal pain NEUROLOGIC: Denies numbness, weakness All systems reviewed & are unremarkable except as noted in HPI and below PMFSH Past Medical History Medical History CHANTAL (acute kidney injury) Depression with anxiety Encounter for surgical aftercare following surgery on the digestive system Essential (primary) hypertension Mixed hyperlipidemia Perforated appendix Smoker Surgical History Surgical History H/O cataract extraction H/O tubal ligation Hx of tonsillectomy S/P laparoscopic appendectomy Family History Family History Mother Diabetes mellitus Hypertension Family history of coronary artery disease Father Family history of malignant neoplasm of urinary bladder Social History Social History Tobacco type: cigarettes Additional smoking assessment comments: pt states social smoking Alcohol intake: current Drinks per week: 5 Substance use: never Gender identity (if verbalized by the patient): Female Spiritual care concerns: No Comments At time of signature, agree with nursing past medical, surgical, social and family history. There is no relevant family history pertinent to the presenting complaint Exam Narrative: Exam Narrative: GENERAL: Well-appearing, well-nourished, and in no acute distress. HEAD: Normocephalic, atraumatic. EYES: PERRLA, conjunctivae clear, and EOMI. ENT: Mucous membranes moist. Oropharynx without edema, erythema or lesions. NECK: Supple. No lymphadenopathy CHEST: Clear to auscultation. No respiratory distress. HEART: Regular rate and rhythm. SKIN: Warm, dry. 10 cm x 6 cm clear fluid-filled blister that is 4 cm tall noted to the lateral edge of the right foot without surrounding induration, erythema. Mild surrounding edema noted NEURO: Alert and oriented x3. PSYCH: Normal mood and affect Course Course Emergency Course: Patient is aware of diagnosis, understands and agrees to treatment plan. Anticipatory guidance given. Patient agrees to follow-up as directed and is aware of reasons to seek care at the emergency department. Portions of this record may have been created with voice recognition software Vital Signs Vital signs: Vital Signs Temperature 97.9 F 03/19/21 19:06 Pulse Rate 74 03/19/21 19:06 Respiratory Rate 12 03/19/21 19:06 Blood Pressure 138/83 03/19/21 19:06 Pulse Oximetry 100 03/19/21 19:06 Temperatu
[2021-03-19 19:11] VITALS: BP 138/83; PULSE 74; RESP 12; TEMP 36.6; O2SAT 100
--- NOTE | 2021-03-19 19:36 | PC.NURSE ---
Blister opened by FUEL CELL TEST ENGINEER. Blister drained. Then dressed with telfa and coban.
== END 2021-03-19 19:38 | disposition home or self-care (01) ==
PROVIDERS: Emergency Provider Nurse Practitioner; PCP Family Medicine
DX: S90.821D Blister (nonthermal), right foot, subsequent encounter (principal); X58.XXXD Exposure to other specified factors, subsequent encounter; I10 Essential (primary) hypertension; E78.2 Mixed hyperlipidemia; F17.210 Nicotine dependence, cigarettes, uncomplicated; Z79.82 Long term (current) use of aspirin; Z98.49 Cataract extraction status, unspecified eye
CPT/HCPCS: 10140; 99213; G0463

== ENCOUNTER 2021-05-30 13:57 | Outpatient (CLI) | payer OTHER, SELFPAY ==
--- NOTE | ~2021-05-30 | US_ITS ---
EXAMINATION: US arterial ankle brachial ind DATE: 05/30/2021 14:56 INDICATION: Decreased capillary refill at the bilateral feet. TECHNIQUE: Segmental pressures and plethysmographic and Doppler waveforms of the brachial and lower e xtremity arteries were obtained. COMPARISON: None. FINDINGS: Right and left brachial artery pressures of 104 mm Hg and 106 mm Hg, respectively, are concordant (no rmal difference <= 30 mmHg). The right ankle-brachial index (OSMAN) is 1.29 (normal >= 0.9-1.0). The right great toe-brachial index (TBI) is 1.04 (normal >= 0.65). Arterial Doppler waveforms are biphasic with brisk systolic upstrokes at both the right posterior tibial and dorsalis pedis arteries. The left OSMAN is 1.25. The left TBI is 1.25. Arterial Doppler waveforms are biphasic with brisk systol ic upstrokes at both the left posterior tibial and dorsalis pedis arteries. IMPRESSION: 1. No significant arterial occlusive disease with normal bilateral ABIs and TBIs. Reviewed, dictated and finalized at location A. IMPRESSION: 1. No significant arterial occlusive disease with normal bilateral ABIs and TBI s.
== END 2021-05-30 13:58 | disposition home or self-care (01) ==
PROVIDERS: PCP Family Medicine; Visit Provider Physician Assistant Medical
DX: R09.89 Other specified symptoms and signs involving the circulatory and respiratory systems (principal)
CPT/HCPCS: 93922

== ENCOUNTER 2022-01-20 11:37 | Emergency (ER) | payer OTHER, SELFPAY ==
--- NOTE | ~2022-01-20 | XR_ITS ---
EXAMINATION: XR chest 2V DATE: 01/20/2022 11:59 INDICATION: Cough. TECHNIQUE: Frontal and lateral views of the chest were obtained. COMPARISON: Chest 2 views 06/26/2017, CT abdomen and pelvis 04/08/2020 FINDINGS: There is chronic elevation of left hemidiaphragm. 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 No pneumonia, pleural effusion, or pneumothorax. The heart size is normal. There are old healed right rib fractures. IMPRESSION: 1. No acute cardiopulmonary disease. Reviewed, dictated and finalized at location A.
[2022-01-20 11:42] VITALS: BP 145/74; PULSE 67; RESP 16; TEMP 36.9; O2SAT 100
--- NOTE | 2022-01-20 11:46 | ED.URI ---
HPI - URI/Sore Throat General Chief Complaint: Upper Respiratory Infection Stated Complaint: Sinus pain Time Seen by Provider: 01/20/22 11:47 Source: patient and RN notes reviewed Mode of arrival: ambulatory Limitations: no limitations History of Present Illness HPI Narrative: 71-year-old female presented for complaint of cough, onset 3 days ago. Today she had an episode of shortness of breath and wheezing. She also endorses sinus congestion and pressure after the cough started. Denies nausea, vomiting, hemoptysis, fever or chills. Denies sick contacts. She is boosted for COVID and has had flu vaccine. She is taking Aleve or ibuprofen for symptoms. Negative home covid tests x2. MD elicited complaint: cough Related Data Home Medications Medication Instructions Recorded Confirmed ascorbate calcium (vitamin C) 500 500 mg PO DAILY 09/26/19 11/12/21 mg tablet aspirin 81 mg tablet,delayed 81 mg PO HS 09/26/19 11/12/21 release Allergies Allergy/AdvReac Type Severity Reaction Status Date / Time nifedipine AdvReac Intermediate feet Verified 01/20/22 11:47 swelling Review of Systems Review of Systems: CONSTITUTIONAL: Denies malaise, chills, sweats, fever EYES: Denies visual changes, redness, or discharge ENT: Reports rhinorrhea, congestion, sinus pain denies otalgia, sore throat CARDIOVASCULAR: Denies chest pain, palpitations, edema RESPIRATORY: Reports cough, post nasal drainage, dyspnea GASTROINTESTINAL: Denies abdominal pain, nausea, vomiting, diarrhea SKIN: Denies rash or itching MUSCULOSKELETAL: denies myalgia NEUROLOGIC: Denies headache PMFSH Past Medical History Medical History CHANTAL (acute kidney injury) Depression with anxiety Encounter for surgical aftercare following surgery on the digestive system Essential (primary) hypertension Mixed hyperlipidemia Perforated appendix Smoker Quit May, Surgical History Surgical History H/O cataract extraction H/O tubal ligation Hx of tonsillectomy S/P laparoscopic appendectomy Family History Family History Mother Diabetes mellitus Hypertension Family history of coronary artery disease Father Family history of malignant neoplasm of urinary bladder Social History Social History Tobacco type: cigarettes Additional smoking assessment comments: pt states social smoking Alcohol intake: current Drinks per week: 5 Substance use: never Gender identity (if verbalized by the patient): Female Spiritual care concerns: No Exam Narrative: GENERAL:well appearing no acute distress. HEAD: Normocephalic EYES: conjunctivae clear ENT: Mucous membranes moist. Nares with clear drainage, TMs pearly marshall with dull light reflex bilaterally; no tragal tenderness. Oropharynx erythematous without lesions or exudate, no drooling, no hoarseness, no trismus, uvula midline. No tripod positioning, muffled voice, soft palate or pharyngeal wall bulging NECK: Supple. No lymphadenopathy CHEST: Clear to auscultation, breath sounds equal. No wheezing, rhonchi, rales, or stridor. No respiratory distress, speaks in full sentences. HEART: Regular rate and rhythm. No murmur heard. SKIN: Warm, dry, no rash. NEURO: Alert and oriented x3. PSYCH: Normal mood and affect Course Course Emergency Course: Patient is aware of diagnosis, understands and agrees to treatment plan. Anticipatory guidance given. Patient agrees to follow-up as directed and is aware of reasons to seek care at the emergency department. Portions of this record may have been created with voice recognition software Level of Care: Express Care Visit Vital Signs Vital signs: Vital Signs Temperature 98.5 F 01/20/22 11:42 Pulse Rate 67 01/20/22 11:42 Respiratory Rate 16 01/20/22 11:42 Blood Pressure 145/74 H 04
== END 2022-01-20 12:20 | disposition home or self-care (01) ==
PROVIDERS: Emergency Provider Nurse Practitioner Family; PCP Family Medicine
DX: J06.9 Acute upper respiratory infection, unspecified (principal); I10 Essential (primary) hypertension; E78.2 Mixed hyperlipidemia; Z87.891 Personal history of nicotine dependence; Z98.49 Cataract extraction status, unspecified eye; Z79.82 Long term (current) use of aspirin
CPT/HCPCS: 71046; 99213; G0463

== ENCOUNTER 2022-03-21 15:29 | Outpatient (CLI) | payer OTHER, SELFPAY ==
--- NOTE | ~2022-03-21 | MM_ITS ---
EXAMINATION: MM screening mimi BI w maddie HISTORY: Screening mammogram TECHNIQUE: Craniocaudal and mediolateral oblique 3-D tomosynthesis images were obtained and synthetic 2-D images were generated. CAD analysis was submitted and interpreted. COMPARISON: 07/23/2019, 05/08/2018, 01/03/2017 bilateral screening mammogram examinations BREAST PARENCHYMAL COMPOSITION: There are scattered areas of fibroglandular density. FINDINGS: There is no evidence of suspicious mass, calcification, or architectural distortion to sugg est malignancy in either breast. There has been no suspicious interval change. IMPRESSION: 1. No mammographic evidence of malignancy. 2. Recommend routine screening mammography in one year. BI-RADS Category 1: Negative Reviewed, dictated and finalized at location A.
--- NOTE | ~2022-03-21 | DEXA_ITS ---
Bone Density Report Name: BRADLEY GUDINO Age: 71 Sex: Female Ethnicity: White Date of : 1950 Indication: osteopenia; postmenopausal Referring Provider: TK GODFREY Study: Bone densitometry was performed. Exam Date: March 21, 2022 Accession number: [id number] Bone Density: Region BMD T-score Z-score Classification AP Spine (L1-L4) 0.787 -2.4 0.0 Osteopenia Femoral Neck (Left) 0.547 -2.7 -0.7 Osteoporosis Total Hip (Left) 0.755 -1.5 0.2 Osteopenia Femoral Neck (Right) 0.582 -2.4 -0.4 Osteopenia Total Hip (Right) 0.722 -1.8 -0.1 Osteopenia Total Hip Mean 0.739 -1.7 0.1 Osteopenia World Health Organization criteria for BMD impression classify patients as: Normal (T-score at or above -1.0), Osteopenia (T-score between -1.0 and -2.5), or Osteoporosis (T-score at or below -2.5). 10-year Fracture Risk: FRAX not reported because: Some T-score for Spine Total or Hip Total or Femoral Neck at or below -2.5 Previous Exams: Region Exam Age BMD T-score BMD Change BMD Change Date g/cm2 vs Baseline vs Previous AP Spine(L1-L4) 03/21/2022 71 0.787 -2.4 0.083* -0.011 05/08/2018 67 0.799 -2.3 0.095* 0.063* 10/28/2014 64 0.736 -2.8 0.032* 0.015 05/05/2011 60 0.721 -3.0 0.017 -0.050* 05/08/2008 57 0.770 -2.5 0.066* 0.066* 11/07/2005 55 0.704 -3.1 Total Hip(Left) 03/21/2022 71 0.755 -1.5 -0.069* -0.074* 05/08/2018 67 0.829 -0.9 0.005 0.011 10/28/2014 64 0.818 -1.0 -0.006 0.124* 05/05/2011 60 0.694 -2.0 -0.130* -0.081* 05/08/2008 57 0.774 -1.4 -0.049* -0.049* 11/07/2005 55 0.824 -1.0 Total Hip(Right) 03/21/2022 71 0.722 -1.8 -0.070* -0.046* 05/08/2018 67 0.768 -1.4 -0.025 -0.019 10/28/2014 64 0.787 -1.3 -0.006 0.073* 05/05/2011 60 0.714 -1.9 -0.079* -0.048* 05/08/2008 57 0.762 -1.5 -0.031* -0.031* 11/07/2005 55 0.793 -1.2 *Denotes significance at 95% confidence level, LSC for AP Spine = 0.022 g/cm2, LSC for Total Hip = 0.027 g/cm2 Clinical Information Provided by Patient: Smokes Has used the following medications: Vitamin D Patient maximum height was 62.5 Menopause Age: 48 No regular weight bearing exercise Onset of menses at age 11 Number of children 1
== END 2022-03-21 15:30 ==
PROVIDERS: PCP Family Medicine; Visit Provider Family Medicine
DX: Z12.31 Encounter for screening mammogram for malignant neoplasm of breast (principal); Z78.0 Asymptomatic menopausal state; M85.89 Other specified disorders of bone density and structure, multiple sites; M81.0 Age-related osteoporosis without current pathological fracture
CPT/HCPCS: 77063; 77067; 77080

== ENCOUNTER 2023-03-23 08:41 | Observation (INO) | payer OTHER, SELFPAY ==
[2023-03-23] VITALS (22 sets, daily range): BP systolic 96–121; BP diastolic 44–95; PULSE 60–84; RESP 11–22; TEMP 36.1–36.7; O2SAT 95–100; BMI 27.6
--- NOTE | ~2023-03-23 | US_ITS ---
EXAMINATION: US carotid duplex BI DATE: 03/24/2023 19:09 INDICATION: Dizziness TECHNIQUE: Grayscale, color Doppler, and pulsed Doppler images of the cervical carotid arteries were obtained. The degree of vessel stenosis is placed in one of the following categories: normal, <50%, 5 0-69%, >=70% but less than near-occlusion, near-occlusion, or total occlusion. Note that percent sten osis relative to normal distal artery lumen diameter is indirectly measured from velocity measurement s as described by Daryn, et al. Radiology 2003; 229:340-346. COMPARISON: None. FINDINGS: RIGHT: The right common carotid artery (CCA) peak systolic velocity (PSV) is 66 cm/s. The right internal car otid artery (ICA) PSV is 96 cm/s. The right ICA end-diastolic velocity (EDV) is 35 cm/s. The right IC A/CCA PSV ratio is 1.5. Grayscale and color Doppler images yield an estimate of less than 50%/greater than or equal to 50% diameter reduction from plaque in the ICA. The external carotid artery (ECA) PS V is 66 cm/s. There is antegrade flow in the right vertebral artery. LEFT: The left CCA PSV is 50 cm/s. The left ICA PSV is 78 cm/s. The left ICA EDV is 25 cm/s. The left ICA/C CA PSV ratio is 1.6. Grayscale and color Doppler images yield an estimate of less than 50%/greater th an or equal to 50% diameter reduction from plaque in the ICA. The ECA PSV is 54 cm/s. There is antegr luly flow in the left vertebral artery. IMPRESSION: 1. <50% stenosis in the right internal carotid artery. 2. <50% stenosis in the left internal carotid artery. Reviewed, dictated and finalized at location F.
--- NOTE | ~2023-03-23 | XR_ITS ---
XR chest 1V portable DATE: 03/23/2023 09:22 INDICATION: Shortness of breath. Syncope. TECHNIQUE: Portable AP chest on 03/23/2023 at 09 2018 hours COMPARISON: 01/20/2022 PA and lateral chest 04/08/2020 CT abdomen pelvis FINDINGS: There is chronic elevation of the right leaf of the diaphragm and foramen of Bochdalek gideon ia posteromedially on the right, documented on 04/08/2020 CT abdomen pelvis examination. Heart size is borderline, not optimally evaluated on AP projection because of magnification. No pulmonary vascular congestion or pleural effusion or pneumothorax is detected. No pulmonary infilt rate or consolidation. Old healed fracture of the posterolateral aspect of the right fifth rib. Osteopenia. IMPRESSION: Chronic elevation of left diaphragm and chronic foramen of Bochdalek fat-containing herni a involving the posteromedial right diaphragm No active pulmonary disease Osteopenia Reviewed, dictated and finalized at location A. IMPRESSION: Chronic elevation of left diaphragm and chronic foramen of Bochdale k fat-containing hernia involving the posteromedial right diaphragm No active pulmonary disease Osteopenia
--- NOTE | ~2023-03-23 | CT_ITS ---
CT of the Abdomen and Pelvis: Indication: Abdominal pain Technique: 2.5 mm axial scans were obtained through the abdomen and pelvis following intravenous adm inistration of 100 cc of Omnipaque 350. Dose reduction technique was used on this scan by utilizing a utomated exposure control and iterative reconstruction technique. The dose-length product (DLP) was 5 69.03 mGy-cm. COMPARISON: 04/08/2020 Findings: Scans through the lung bases are unremarkable. The liver, spleen, pancreas, gallbladder, adrenals and kidneys are within normal limits. No evidence of aortic aneurysm. No lymphadenopathy. Questionable wall thickening of the descending and sigmoid colon versus underdistention. No bowel obs truction. No abscess or free air. No significant inflammatory change clearly identified. Images through the pelvis were performed. Urinary bladder unremarkable. No adnexal mass seen. No asci toña. Impression: Questionable wall thickening of the descending and sigmoid colon versus underdistention. Correlate fo r infectious/inflammatory colitis versus artifactual thickening due to underdistention. Reviewed, dictated and finalized at location . Impression: Questionable wall thickening of the descending and sigmoid colon versus underdi stention. Correlate for infectious/inflammatory colitis versus artifactual thic kening due to underdistention.
--- NOTE | 2023-03-23 08:49 | ECG_ITS ---
Measurements Intervals [place] Rate: 67 P: 17 ND: 182 QRS: 9 QRSD: 92 T: 133 QT: 485 QTc: 512 Interpretive Statements SINUS RHYTHM MARKED T-WAVE ABNORMALITY, CONSIDER ANTEROLATERAL ISCHEMIA [-0.5+ mV T WAVE IN I/aVL/V3-V6] ABNORMAL ECG COMPARED TO ECG 04/08/2020 20:52:58 NO SIGNIFICANT CHANGES Electronically Signed On 03-23-2023 10:26:14 CDT by Jordan Duran M.D.
--- NOTE | 2023-03-23 09:11 | ED.GENADULT ---
HPI - General Adult General Chief complaint: Syncope Stated complaint: hypotensive Time Seen by Provider: 03/23/23 08:50 History of Present Illness HPI narrative: 72-year-old female with history of acute kidney injury, anemia, high cholesterol, hypertension presented to the emergency department for evaluation after having a near syncopal episode. Patient states when she woke up this morning she did take her blood pressure medications. Patient states she took those approximately 6 AM and around 8 AM she began to have some feeling of lightheaded and dizziness. Patient states while she was driving to work she did have a loose bowel movement and went home and had more loose bowel movements. Patient states then she began to have onset of diaphoresis and abdominal cramping. Patient laid down on the floor and called EMS. Patient denied any pain or injury from laying down on the floor. When EMS arrived they state her blood pressure was in the 60s to 70s systolic. Patient was started on IV fluids. Upon arrival to the ED patient states she does feel improved and patient's blood pressure was 96/44. Patient denies any chest pain but states that she has had some intermittent left arm pain and left chest wall pain that occurs intermittently over the last few months. Patient states she is currently having this pain but states that is unchanged from the pain that she has intermittently. Patient denies any current shortness of breath or diaphoresis. Patient denies any current abdominal pain. Patient reports that the left arm pain that she has been having is reproducible with range of motion of the left arm and is often caused when she is lifting her left arm. Related Data Home Medications Medication Instructions Recorded Confirmed ascorbate calcium (vitamin C) 500 500 mg PO DAILY 09/26/19 03/23/23 mg tablet amitriptyline 25 mg tablet 25 mg PO HS 03/23/23 03/23/23 atorvastatin 10 mg tablet 10 mg PO DAILY 03/23/23 03/23/23 citalopram 20 mg tablet 20 mg PO DAILY 03/23/23 03/23/23 furosemide 20 mg tablet 20 mg PO DAILY 03/23/23 03/23/23 lisinopril 10 10 tablet PO DAILY 03/23/23 03/23/23 mg-hydrochlorothiazide 12.5 mg tablet Allergies Allergy/AdvReac Type Severity Reaction Status Date / Time nifedipine AdvReac Intermediate feet Verified 02/03/23 15:24 swelling Review of Systems Review of Systems: All systems reviewed & are unremarkable except as noted in HPI and below PMFSH Past Medical History Medical History CHANTAL (acute kidney injury) Depression with anxiety Encounter for surgical aftercare following surgery on the digestive system Essential (primary) hypertension Mixed hyperlipidemia Perforated appendix Smoker Quit May, Surgical History Surgical History H/O cataract extraction H/O tubal ligation Hx of tonsillectomy S/P laparoscopic appendectomy Family History Family History Mother Diabetes mellitus Hypertension Family history of coronary artery disease Father Family history of malignant neoplasm of urinary bladder Social History Social History (Updated 02/03/23 @ 15:42 by Jesenia Ray MA) Years smoked: 30 Smoking status: Former smoker Tobacco type: cigarettes Additional smoking assessment comments: pt states social smoking Alcohol intake: current Drinks per week: 4 Substance use: never Lack of Transportation: No Lack of Food: Never True Current Housing: I Have Housing Concerned About Future Housing: No Difficulty Paying Gas/Electric Bills: No Difficulty Paying for Meds: No Currently Unemployed: No Education: High School Diploma/GED Gender identity (if verbalized by the patient): Female Spiritual care concerns: No Exam Narrative: APPEARANCE: Well appearing, no pain, no distress, well-nourished. HEAD: normocephalic, atraumatic. EYES: P
[2023-03-23 09:38] LABS: Basophils Absolute Auto 0.1 K/mm3 (0.0-0.1); Basophils Percent Auto 0.4 % (0.2-1.2); Eosinophils Absolute Auto 0.1 K/mm3 (0-0.3); Hematocrit 40.4 % (37.0-47.0); Hemoglobin 12.9 g/dL (12.0-15.0); Immature Granulocyte Absolute 0.02 K/mm3 (0.00-0.031); Immature Granulocyte Percent A 0.2 % (0-0.5); Lymphocytes Absolute Auto 0.19 K/mm3 (0.9-3.2); Lymphocytes Percent Auto 1.6 % (18.3-44.2); Mean Corpuscular HGB Conc 31.9 g/dl (32-36); Mean Corpuscular Hemoglobin 31.2 pg (26-34); Mean Corpuscular Volume 97.6 fl (80-100); Mean Platelet Volume 9.9 fl (7.4-10.4); Monocytes Absolute Auto 0.7 K/mm3 (0.1-0.6); Monocytes Percent Auto 5.5 % (2.6-8.5); Neutrophils Absolute Auto 11.1 K/mm3 (1.3-6.7); Neutrophils Percent Auto 91.3 % (45.5-73.1); Platelet Count Result 256 k/mm3 (150-375); Red Blood Count 4.14 M/mm3 (4.2-5.4); Red Cell Distribution Width 12.5 % (11.5-14.5); White Blood Count 12.1 K/mm3 (4.5-10.0)
[2023-03-23 09:48] LABS: INR 1.1; Prothrombin Time 14.3 Seconds (11.1-14.7)
[2023-03-23 09:49] LABS: Alanine Aminotransferase 16 U/L (6-35); Albumin Level 3.8 g/dL (3.5-5.1); Alkaline Phosphatase 70 U/L (38-126); Anion Gap 5 mmol/L (8-16); Aspartate Amino Transferase 21 U/L (14-36); Bilirubin,Total 0.5 mg/dL (0.2-1.3); Blood Urea Nitrogen 20 mg/dL (7-17); Calcium 7.7 mg/dL (8.4-10.2); Carbon Dioxide 27 mmol/L (22-30); Chloride 110 mmol/L (98-107); Estimated CRCL calculation 41 ml/min; Estimated Glomerular Filt Rate 54; Glucose 123 mg/dL (65-110); Magnesium 1.6 mg/dL (1.6-2.3); Partial Thromboplastin Time 26.5 SECONDS (22.3-36.8); Potassium 3.6 mmol/L (3.4-5.0); Sodium 142 mmol/L (137-145)
[2023-03-23 09:55] LABS: Anisocytosis 1+ (NORMAL); Hypochromasia 1+ (NORMAL); Platelet Estimate Adequate (Adequate); Schistocytes None Seen (NORMAL)
[2023-03-23 10:01] LABS: Troponin I < 0.012 ng/mL (0.000-0.034)
[2023-03-23] MEDS: SODIUM CHLORIDE 0.9% IV 1,000 ML 500 ML IV CONT (12:00)
[2023-03-23 12:28] LABS: Troponin I < 0.012 ng/mL (0.000-0.034)
--- NOTE | 2023-03-23 13:00 | ECG_ITS ---
Measurements Intervals [place] Rate: 69 P: 25 UT: 187 QRS: 25 QRSD: 87 T: 133 QT: 471 QTc: 506 Interpretive Statements SINUS RHYTHM MARKED T-WAVE ABNORMALITY, CONSIDER ANTEROLATERAL ISCHEMIA PROLONGED QT INTERVAL COMPARED TO ECG 03/23/2023 08:49:34 PROLONGED QT INTERVAL NOW PRESENT Electronically Signed On 03-24-2023 14:01:45 CDT by Anish Sandoval M.D.
[2023-03-23] MEDS: ONDANSETRON INJ 4 MG/2 ML VIAL IV PUSH ×2 (13:11→20:27)
[2023-03-23] MEDS: metroNIDAZOLE 250 MG TABLET 500 MG PO (14:50)
[2023-03-23] MEDS: CIPROFLOXACIN 500 MG TAB PO (14:50)
--- NOTE | 2023-03-23 16:02 | PM.IMHP ---
H&P: HPI History of Present Illness Date/Time: 03/23/23 16:02 Chief Complaint: Syncope Narrative: This is a 72-year-old female patient who has a history of acute kidney injury, hyperlipidemia hypertension. The patient came to the emergency room today for complaints of a near syncopal episode. The patient stated that she was on her way to work this morning when she became diaphoretic and felt like she was going to pass out. The patient stated that she took her blood pressure medicine between 6 and 8:00 a.m. this morning. The patient had multiple bowel movements this morning. The patient had been on her way to work this morning and stated that she was having loose stools and had an accident had a turnaround go back home. She did not sustain any injuries. Her pressures were in the 60s to 70s. The patient was started on IV fluids. The patient stated she felt much better and her blood pressure was 96/44. The patient stated that she has had multiple episodes feeling as if she is going to pass out. She also complained of some left arm pain today. EKG was read as sinus rhythm nonspecific ST and T-wave abnormality. Prolonged QT. abdominal pelvis CT read as follows questionable wall thickening of the descending and sigmoid colon versus underdistention. Correlate for infectious/inflammatory colitis versus artifactual thickening due to underdistention. 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 IV fluids, Zofran, Cipro, and Flagyl were given in the emergency room. White count 12.1. Troponins were negative x2. The patient is being admitted to observation status on the date of service is 03/23/2023. Review of Systems Review of Systems: All systems reviewed & are unremarkable except as noted in HPI and below Constitutional: Constitutional: Reports as per HPI and Reports no additional constitutional complaints Eyes: Eyes: Reports as per HPI and Reports no additional eye complaints ENT: Reports system reviewed and no additional complaints, except as documented and Reports Normal hearing present Cardiovascular: Cardiovascular: Reports no additional cardiovascular complaints Respiratory: Respiratory: Reports no additional respiratory complaints and Reports no additional respiratory complaints Gastrointestinal: Gastrointestinal: Reports as per HPI and Reports no additional gastrointestinal complaints Musculoskeletal: Musculoskeletal: Reports no additional musculoskeletal complaints Integumentary/Breasts: Skin/Breast: Reports system reviewed and no additional complaints, except as docu and Reports as per HPI Neurologic: Reports system reviewed and no additional complaints, except as documented, Reports as per HPI and Reports Normal hearing present Psychiatric: Psychiatric: Reports no additional psychiatric complaints and Reports as per HPI Endocrine: Endocrine: Reports no additional endocrine complaints Hematologic/Lymphatic: Hematologic/Lymphatic: Reports no additional hematologic/lymphatic complaints Allergic/Immunologic: Allergic/Immunologic: Reports no additional allergic/immunologic complaints PMFSH Past Medical History Medical History CHANTAL (acute kidney injury) Depression with anxiety Encounter for surgical aftercare following surgery on the digestive system Essential (primary) hypertension Mixed hyperlipidemia Perforated appendix Smoker Quit May, Surgical History Surgical History H/O cataract extraction H/O tubal ligation Hx of tonsillectomy S/P laparoscopic appendectomy Family History Family History Mother Diabetes mellitus Hypertension Family history of coronary artery disease Father Family history of malignant neoplasm of urinary bladder Socia
[2023-03-23] MEDS: SODIUM CHLORIDE 0.9% IV 1,000 ML 100 ML IV CONT (16:43)
--- NOTE | 2023-03-23 16:56 | ADMGEN ---
This patient, Tiffany Canales, was admitted to IMU Room 204-01. 15:27 report taken from [facility] Patient/family oriented to hospital policies and general routines including ID bracelet, bed and alarms, visiting hours, pain management, procedures, bathroom and other care routines, personal items, smoking policy, room service/diet, and visiting hours. Information on how to activate the Rapid Response Team has been discussed. Patient/Family are encouraged to report perceived risks to care and to ask questions if they do not understand what they are told or what they should do.
[2023-03-23] MEDS: AMITRIPTYLINE HCL 25 MG TABLET PO (23:16)
[2023-03-23] MEDS: metroNIDAZOLE 500 MG/ISO 100ML 500 MG/100 ML BAG 100 MG IVPB (23:18)
[2023-03-23] MEDS: clonazePAM (*CRX) 0.5 MG TABLET PO (23:18)
[2023-03-24] VITALS (17 sets, daily range): BP systolic 97–132; BP diastolic 44–57; PULSE 59–74; RESP 16–19; TEMP 36.2–36.8; O2SAT 96–100
--- NOTE | 2023-03-24 | ECHO_ITS ---
Patient Info Name: Tiffany Canales Age: 72 years : 1950 Gender: Female Ht: 64 in Wt: 157 lbs BSA: 1.81 m2 HR: 67 bpm BP: 103 / 49 mmHg Heart Rhythm: Sinus Rhythm Technical Quality: Fair Exam Date: 03/24/2023 10:49 AM Exam Location: [facility] Patient Status: Inpatient Admit Date: 03/23/2023 Staff Ordering Physician: Sarah Cline NP [employer] Wheel Former: Sonali Casillas RDCS Attending Provider: Henrry Ruiz MD Referring Physician: Son CAMPA; Exam Type: CA echo doppler color flow Study Info Indications - near syncopal episode Complete two-dimensional, color flow and Doppler transthoracic echocardiogram is performed. Summary 1. Complete two-dimensional, color flow and Doppler transthoracic echocardiogram is performed. 2. Left ventricular chamber dimension is normal. 3. Left ventricular systolic function is normal, estimated at 60-65%. 4. The left ventricular diastolic function is grade I diastolic dysfunction. 5. Right ventricular systolic function is normal. 6. There is trace mitral valve regurgitation. 7. There is trace tricuspid valve regurgitation. Left Ventricle Left ventricular chamber dimension is normal. Left ventricular systolic function is normal, estimated at 60-65%. There is no increased left ventricular wall thickness. The left ventricular diastolic function is grade I diastolic dysfunction. Right Ventricle Right ventricular chamber dimension is normal. Right ventricular systolic function is normal. Left Atria Left atrial chamber dimension is normal. Right Atria Right atrial chamber dimension is normal. Atrial Septum Intact interatrial septum visualized by color flow imaging. Aortic Valve The aortic valve is not well visualized. There is mild aortic valve sclerosis. There is no aortic valve stenosis. There is no aortic valve regurgitation. Pulmonic Valve The pulmonic valve is not well visualized. Mitral Valve The mitral valve has thickened leaflets. There is trace mitral valve regurgitation. Tricuspid Valve There is trace tricuspid valve regurgitation. Pericardium/Pleural The pericardium appears epicardial fat pad. There is no pericardial effusion. Inferior Vena Cava Normal inferior vena cava with >50% collapse upon inspiration consistent with normal right atrial pressure, 3 mmHg. Aorta The aortic root size at the sinus of Valsalva is normal. Left Ventricular Outflow Tract Name Value Normal LVOT 2D LVOT Diameter 2.1 cm LVOT Doppler LVOT Peak Gradient 7 mmHg LVOT Mean Gradient 4 mmHg LVOT VTI 30 cm LVOT VTI/AV VTI Ratio 1.0 LVOT Stroke Volume 101 ml LVOT CO 6.3 l/min LVOT CI 3.5 l/min/m2 Pulmonic Valve Name Value Normal RVOT Doppler RVOT Peak Gradient 1 mmH
[2023-03-24] MEDS: SODIUM CHLORIDE 0.9% IV 1,000 ML 100 ML IV CONT ×2 (03:49→18:21)
[2023-03-24 05:03] LABS: Basophils Percent Auto 0.5 % (0.2-1.2); Eosinophils Absolute Auto 0.1 K/mm3 (0-0.3); Eosinophils Percent Auto 1.1 % (0-4.4); Hematocrit 34.2 % (37.0-47.0); Hemoglobin 11.2 g/dL (12.0-15.0); Immature Granulocyte Absolute 0.02 K/mm3 (0.00-0.031); Immature Granulocyte Percent A 0.5 % (0-0.5); Lymphocytes Absolute Auto 0.47 K/mm3 (0.9-3.2); Lymphocytes Percent Auto 10.6 % (18.3-44.2); Mean Corpuscular HGB Conc 32.7 g/dl (32-36); Mean Corpuscular Hemoglobin 31.5 pg (26-34); Mean Corpuscular Volume 96.3 fl (80-100); Mean Platelet Volume 9.9 fl (7.4-10.4); Monocytes Absolute Auto 0.4 K/mm3 (0.1-0.6); Monocytes Percent Auto 8.8 % (2.6-8.5); Neutrophils Absolute Auto 3.5 K/mm3 (1.3-6.7); Neutrophils Percent Auto 78.5 % (45.5-73.1); Platelet Count Result 202 k/mm3 (150-375); Red Blood Count 3.55 M/mm3 (4.2-5.4); Red Cell Distribution Width 12.7 % (11.5-14.5); White Blood Count 4.4 K/mm3 (4.5-10.0)
[2023-03-24 05:13] LABS: Alanine Aminotransferase 14 U/L (6-35); Alkaline Phosphatase 53 U/L (38-126); Anion Gap 5 mmol/L (8-16); Aspartate Amino Transferase 18 U/L (14-36); Bilirubin,Total 0.5 mg/dL (0.2-1.3); Blood Urea Nitrogen 16 mg/dL (7-17); Calcium 7.1 mg/dL (8.4-10.2); Carbon Dioxide 25 mmol/L (22-30); Chloride 111 mmol/L (98-107); Estimated CRCL calculation 43 ml/min; Estimated Glomerular Filt Rate 54; Glucose 90 mg/dL (65-110); Magnesium 1.6 mg/dL (1.6-2.3); Sodium 141 mmol/L (137-145)
[2023-03-24 05:26] LABS: Lactic Acid Reflex 0.8 mmol/L (0.7-2.0)
[2023-03-24] MEDS: metroNIDAZOLE 500 MG/ISO 100ML 500 MG/100 ML BAG 100 MG IVPB ×4 (05:49→23:51)
[2023-03-24] MEDS: LEVOTHYROXINE SODIUM 88 MCG TABLET PO (05:49)
[2023-03-24] MEDS: CITALOPRAM HYDROBROMIDE 20 MG TABLET PO (08:50)
[2023-03-24] MEDS: lisinopriL 10 MG TABLET PO (08:50)
[2023-03-24] MEDS: METOPROLOL TARTRATE 25 MG TABLET PO (08:50)
[2023-03-24] MEDS: CHOLECALCIFEROL 1,000 UNITS TABLET 2000 UNITS PO (08:50)
[2023-03-24] MEDS: ATORVASTATIN 10 MG TABLET PO (08:50)
[2023-03-24] MEDS: ASCORBIC ACID 500 MG TABLET PO (08:50)
[2023-03-24] MEDS: PIPERACILLN/TAZ 3.375GM/NS50ML 3.375 GM/50 ML BAG IVPB ×3 (10:45→20:18)
--- NOTE | 2023-03-24 10:59 | PM.IMPN ---
Progress Note: A&P Assessment and Plan (1) Syncope: Code(s): R55 - Syncope and collapse Status: Acute Assessment and Plan: Orthostatic blood pressures Q shift. The patient may have been dehydrated from the multiple loose stools. The patient's blood pressure was low upon arrival and when she was given IV fluids her blood pressure came back up. However the patient stated that she has had these feelings in the past where she feels like she is going to pass out. An echo has been ordered. Her cardiac enzymes are negative. Check carotid Metoprolol is on hold. Blood pressures 119/57. (2) Colitis: Code(s): K52.9 - Noninfective gastroenteritis and colitis, unspecified Status: Acute Assessment and Plan: Zosyn. (3) Hypothyroidism: Code(s): E03.9 - Hypothyroidism, unspecified Status: Acute Assessment and Plan: Continue with the Synthroid and check thyroid levels. (4) Essential (primary) hypertension: Code(s): I10 - Essential (primary) hypertension Status: Chronic Assessment and Plan: Continue with metoprolol and lisinopril. Hold the Lasix and hydrochlorothiazide for tonight. The patient appears to be dehydrated. Please re-evaluate tomorrow. (5) Depression with anxiety: Code(s): F41.8 - Other specified anxiety disorders Status: Chronic Assessment and Plan: Continue with amitriptyline, clonazepam and Celexa. Plan Subjective Date/time seen: 03/24/23 10:59 Interval history: Feeling better this morning. Vitals and blood pressure okay. No presyncope or syncope this morning. Exam Const: General: cooperative, healthy appearing, comfortable, no acute distress, well developed, awake, Physically active, average body habitus and well nourished Nutritional Appearance: average body habitus and well nourished Orientation/consciousness: oriented to person, oriented to place, oriented to time and patient oriented x3 Limitations: no limitations HENMT: Head: normal to inspection, No palpable skull fracture present, normocephalic and atraumatic Ears: hearing grossly normal bilaterally and external ears normal Face/Nose/Sinus: Normal external nose present and Normal nares present Eyes: General: appearance normal, both eyes and all related structures Alignment and Position: alignment normal Periorbital: periorbital findings normal Eyelids: eyelids normal Sclera: sclerae normal Cornea: corneas normal Pupils: Equal, round and reactive pupils present EOM: EOMs intact bilaterally Neck: Neck: normal visual inspection, full ROM, no lymphadenopathy, trachea midline and supple Chest: Chest palpation & inspection: normal inspection of the chest Resp: Effort & Inspection: normal respiratory effort Auscultation: clear to auscultation bilaterally Cardio: Palpation: normal PMI Rate: regular rate Rhythm: regular rhythm Heart sounds: S1 normal heart sound present and S2 normal heart sound present Peripheral pulses: Peripheral pulses 2+ throughout GI: Inspection: normal to inspection Auscultation: normal bowel sounds Rectal Exam: deferred Back/Spine/Pelvis: Cervical Spine: cervical ROM normal Skin: General skin exam: normal color Lesions: no lesions Rashes: no rashes Trauma: no lacerations or abrasions Wounds: no wounds Hair: normal Nails: normal Neuro: General: oriented to person, oriented to place, oriented to time and patient oriented x3 Cranial nerves: Yes Equal, round and reactive pupils present and Yes Normal hearing present Cognition (Neuro): normal cognition Speech: normal speech Motor exam (neuro): 5/5 motor strength present throughout Sensory Exam: normal sensation Extrem: General: normal to inspection Right upper extremity: normal to inspection and shoulder/upper arm Left upper extremity: normal to inspection and shoulder/upper arm Right lower extremity: normal to inspection Left lower extremity: normal to inspect
--- NOTE | 2023-03-24 18:34 | PC.NURSE ---
This patient, Tiffany Canales, was received from IMU room 204 on 03/24/23 at 1834. Patient/family oriented to unit policies and routines
--- NOTE | 2023-03-24 18:49 | PC.NURSE ---
This patient, Tiffany Canales, was transferred to [[facility] ] on 03/24/23 at 1820. Personal belongings sent with patient. Report given to [ ALISE Wilkerson @ [phone]]. Appropriate documentation sent with patient.
[2023-03-24] MEDS: AMITRIPTYLINE HCL 25 MG TABLET PO (20:17)
[2023-03-24] MEDS: clonazePAM (*CRX) 0.5 MG TABLET PO (20:18)
[2023-03-25] VITALS (10 sets, daily range): BP systolic 96–133; BP diastolic 45–72; PULSE 57–71; RESP 17–18; TEMP 36.6–36.8; O2SAT 95–98
[2023-03-25] MEDS: PIPERACILLN/TAZ 3.375GM/NS50ML 3.375 GM/50 ML BAG IVPB (03:57)
[2023-03-25] MEDS: LEVOTHYROXINE SODIUM 88 MCG TABLET PO (05:29)
[2023-03-25] MEDS: SODIUM CHLORIDE 0.9% IV 1,000 ML 100 ML IV CONT (05:29)
[2023-03-25] MEDS: metroNIDAZOLE 500 MG/ISO 100ML 500 MG/100 ML BAG 100 MG IVPB (05:46)
[2023-03-25] MEDS: CITALOPRAM HYDROBROMIDE 20 MG TABLET PO (10:30)
[2023-03-25] MEDS: CHOLECALCIFEROL 1,000 UNITS TABLET 2000 UNITS PO (10:30)
[2023-03-25] MEDS: ASCORBIC ACID 500 MG TABLET PO (10:30)
[2023-03-25] MEDS: lisinopriL 10 MG TABLET PO (10:30)
[2023-03-25] MEDS: ATORVASTATIN 10 MG TABLET PO (10:30)
[2023-03-25] MEDS: POTASSIUM CHLORIDE 20 MEQ TABLET 40 MEQ PO (10:32)
--- NOTE | 2023-03-25 10:37 | PM.DS ---
DS: Admitting Diagnosis Discharge Date 03/25/2023 Admitting Diagnosis Presyncope DS: Discharge Diagnosis Discharge Diagnosis (1) Colitis: Code(s): K52.9 - Noninfective gastroenteritis and colitis, unspecified Status: Acute (2) Syncope: Code(s): R55 - Syncope and collapse Status: Acute (3) Hypothyroidism: Code(s): E03.9 - Hypothyroidism, unspecified Status: Acute DS: Summary Hospital Course Hospital Course: Assessment and Plan (1) Syncope: ?Code(s): R55 - Syncope and collapse ?Status:?Acute ?Assessment and Plan: Orthostatic blood pressures are normal. The patient may have been dehydrated from the multiple loose stools.? The patient's blood pressure was low upon arrival and when she was given IV fluids her blood pressure came back up.? However the patient stated that she has had these feelings in the past where she feels like she is going to pass out. Echo was unremarkable Her cardiac enzymes are negative. Carotid duplex was unremarkable (2) Colitis: ?Code(s): K52.9 - Noninfective gastroenteritis and colitis, unspecified ?Status:?Acute ?Assessment and Plan: Sent home with oral Cipro and Flagyl. Patient received IV Zosyn he (3) Hypothyroidism: ?Code(s): E03.9 - Hypothyroidism, unspecified ?Status:?Acute ?Assessment and Plan: Continue with the Synthroid and check thyroid levels. (4) Essential (primary) hypertension: ?Code(s): I10 - Essential (primary) hypertension ?Status:?Chronic ?Assessment and Plan: Continue with home medications. Blood pressure stable (5) Depression with anxiety: ?Code(s): F41.8 - Other specified anxiety disorders ?Status:?Chronic ?Assessment and Plan: Continue with amitriptyline, clonazepam and Celexa. Patient is stable and is being discharged home Time Spent with Patient Time attestation: Total time spent providing and/or coordinating discharge services: Discharge Plan Discharge Discharging Clinician: Srinivas Holman Anticipated Discharge Date/Time: 03/25/23 10:35 Patient Disposition: Home, Self-Care Activity: no preference Diet: heart healthy Patient Instructions: Antibiotic Form Stand Alone Forms: General Discharge Information Follow-up/Referrals: Destin Brooks MD [Primary Care Provider] - Discharge Medications: New ciprofloxacin HCl 500 mg tablet 500 mg PO Q12H Qty: 6 0RF metronidazole 500 mg tablet 500 mg PO Q8H Qty: 9 0RF Continued ascorbate calcium (vitamin C) 500 mg tablet 500 mg PO DAILY levothyroxine 88 mcg tablet 88 mcg PO DAILY Qty: 90 3RF atorvastatin 10 mg tablet 10 mg PO DAILY citalopram 20 mg tablet 20 mg PO DAILY amitriptyline 25 mg tablet 25 mg PO HS furosemide 20 mg tablet 20 mg PO DAILY lisinopril-hydrochlorothiazide 10-12.5 mg tablet 10 tablet PO DAILY cholecalciferol (vitamin D3) 25 mcg (1,000 unit) capsule 2,000 unit PO DAILY Qty: 90 3RF clonazepam 1 mg tablet 0.5 mg PO QHS Qty: 15 0RF metoprolol tartrate 25 mg tablet 25 mg PO DAILY Qty: 90 0RF Date of admission: 03/23/23 14:04 Primary Care Provider: Destin Brooks Admitting Provider: Henrry Ruiz Attending physician on admission: Srinivas Holman Condition: Stable
[2023-03-25] MEDS: POTASSIUM CHLORIDE 20 MEQ PACKET (FOR LIQUID) 40 MEQ PO (12:57)
== END 2023-03-25 13:25 | disposition home or self-care (01) ==
LOC: ANHED 09:12 → ANHIMU 14:48 → ANH3MED 03-24 18:33
PROVIDERS: Nurse Practitioner; Admitting Provider Chiropractor; Emergency Provider Emergency Medicine; PCP Emergency Medicine; Visit Provider Hospitalist
DX: R55 Syncope and collapse (principal); K52.9 Noninfective gastroenteritis and colitis, unspecified; E03.9 Hypothyroidism, unspecified; I11.9 Hypertensive heart disease without heart failure; F41.8 Other specified anxiety disorders; K46.9 Unspecified abdominal hernia without obstruction or gangrene; I95.9 Hypotension, unspecified; R19.5 Other fecal abnormalities; D72.829 Elevated white blood cell count, unspecified; N17.9 Acute kidney failure, unspecified; D64.9 Anemia, unspecified; R94.31 Abnormal electrocardiogram [ECG] [EKG]; E78.2 Mixed hyperlipidemia; F10.90 Alcohol use, unspecified, uncomplicated; M85.80 Other specified disorders of bone density and structure, unspecified site; Z87.891 Personal history of nicotine dependence; Z79.899 Other long term (current) drug therapy
CPT/HCPCS: 36415; 71045; 74177; 80053; 83605; 83735; 84443; 84484; 85025; 85610; 85730; 93005; 93306; 93880; 96361; 96365; 96366; 96367; 96375; 99285; A9270; G0378; J2405; J2543; J7030; Q9967

== ENCOUNTER 2023-04-15 15:17 | Outpatient (CLI) | payer OTHER, SELFPAY ==
--- NOTE | ~2023-04-15 | CT_ITS ---
EXAMINATION: CT brain wo con DATE: 04/15/2023 15:35 INDICATION: R51.9 - Headache, unspecified . TECHNIQUE: Computed tomography (CT) of the head was performed without intravenous contrast. The mA wa s adjusted according to patient size. Iterative reconstruction technique was employed. The dose-lengt h product was 605.33 mGy-cm. COMPARISON: MR brain 01/29/2021. FINDINGS: No acute intracranial hemorrhage or extra-axial fluid collection. No hydrocephalus, mass, or herniation. No acute ischemic infarct. Unremarkable dural venous sinus attenuation. No acute osseous abnormality. The aerated spaces are clear. Mild atrophy and chronic white matter change. Right basal ganglia calcification. Tiny, old bilateral basal ganglia lacunar infarcts. Empty sella. Atherosclerotic intracranial calcification. Bilateral le ns replacements. IMPRESSION: No acute intracranial process. Reviewed, dictated and finalized at location K.
== END 2023-04-15 15:18 | disposition home or self-care (01) ==
PROVIDERS: PCP Emergency Medicine; Visit Provider Emergency Medicine
DX: R51.9 Headache, unspecified (principal)
CPT/HCPCS: 70450

== ENCOUNTER 2023-06-08 15:54 | Emergency (ER) | payer OTHER, SELFPAY ==
[2023-06-08] VITALS (15 sets, daily range): BP systolic 117–136; BP diastolic 53–75; PULSE 59–84; RESP 14–21; TEMP 36.6; O2SAT 96–100
--- NOTE | ~2023-06-08 | XR_ITS ---
EXAMINATION: XR chest 2V DATE: 06/08/2023 17:53 INDICATION: Weakness, diarrhea, lightheadedness and dizziness TECHNIQUE: PA and lateral views of the chest were obtained. COMPARISON: Chest radiograph dated 03/23/2023 FINDINGS: Chronic elevation the left hemidiaphragm and eventration along the right hemidiaphragm. No focal airs pace opacities, pulmonary edema, pleural effusion or pneumothorax. The cardiomediastinal silhouette i s normal. Old healed posterolateral right fifth rib fracture. IMPRESSION: 1. Chronic elevation of the left hemidiaphragm and eventration along the right hemidiaphragm. No acut e cardiopulmonary disease. Reviewed, dictated and finalized at location [facility]. IMPRESSION: 1. Chronic elevation of the left hemidiaphragm and eventration along the right hemidiaphragm. No acute cardiopulmonary disease.
--- NOTE | 2023-06-08 17:00 | ECG_ITS ---
Measurements Intervals [place] Rate: 67 P: 24 NC: 164 QRS: -2 QRSD: 98 T: 120 QT: 417 QTc: 441 Interpretive Statements SINUS RHYTHM ST DEVIATION AND MODERATE T-WAVE ABNORMALITY, CONSIDER LATERAL ISCHEMIA [-0.1+ mV T WAVE IN I/aVL/V5/V6] COMPARED TO ECG 03/23/2023 13:47:02 PROLONGED QT INTERVAL NO LONGER PRESENT Electronically Signed On 06-09-2023 11:15:38 CDT by Anish Sandoval M.D.
[2023-06-08 17:17] LABS: Basophils Percent Auto 0.6 % (0.2-1.2); Eosinophils Percent Auto 0.3 % (0-4.4); Hematocrit 40.4 % (37.0-47.0); Hemoglobin 12.9 g/dL (12.0-15.0); Immature Granulocyte Absolute 0.01 K/mm3 (0.00-0.031); Immature Granulocyte Percent A 0.3 % (0-0.5); Lymphocytes Absolute Auto 1.04 K/mm3 (0.9-3.2); Lymphocytes Percent Auto 32.1 % (18.3-44.2); Mean Corpuscular HGB Conc 31.9 g/dl (32-36); Mean Corpuscular Hemoglobin 29.8 pg (26-34); Mean Corpuscular Volume 93.3 fl (80-100); Mean Platelet Volume 10.5 fl (7.4-10.4); Monocytes Absolute Auto 0.4 K/mm3 (0.1-0.6); Monocytes Percent Auto 11.4 % (2.6-8.5); Neutrophils Absolute Auto 1.8 K/mm3 (1.3-6.7); Neutrophils Percent Auto 55.3 % (45.5-73.1); Platelet Count Result 184 k/mm3 (150-375); Red Blood Count 4.33 M/mm3 (4.2-5.4); Red Cell Distribution Width 13.2 % (11.5-14.5); White Blood Count 3.2 K/mm3 (4.5-10.0)
[2023-06-08 17:27] LABS: Alanine Aminotransferase 18 U/L (6-35); Albumin Level 4.1 g/dL (3.5-5.1); Alkaline Phosphatase 65 U/L (38-126); Anion Gap 10 mmol/L (8-16); Aspartate Amino Transferase 27 U/L (14-36); Bilirubin,Total 0.3 mg/dL (0.2-1.3); Blood Urea Nitrogen 30 mg/dL (7-17); Calcium 8.5 mg/dL (8.4-10.2); Carbon Dioxide 24 mmol/L (22-30); Chloride 103 mmol/L (98-107); Estimated CRCL calculation 25 ml/min; Estimated Glomerular Filt Rate 34; Glucose 119 mg/dL (65-110); Sodium 137 mmol/L (137-145)
[2023-06-08 18:03] LABS: Appearance Urine Clear (Clear); Bacteria Urine Rare /hpf; Bilirubin Urine Negative (Negative); Blood Urine Negative (Negative); Color Urine Dark Yellow (Yellow); Glucose Urine UA Negative (Negative); Hyaline Casts Urine Present /lpf; Ketones Urine Trace mg/dL (Negative); Leukocyte Esterase Ur Trace LEU/UL (Negative); Nitrate Urine Negative (Negative); Non Pathogenic Casts >20; Protein Urine 1+ mg/dL (Negative); RBC Urine 0-2 /hpf (0-2); Specific Grav Ur 1.024 (1.001-1.035); Squamous Epithelial Cell Urine Moderate /hpf (Few); WBC Urine 0-5 /hpf; pH Urine 5.5 (5.0-9.0)
[2023-06-08 18:04] LABS: Add Urine Microscopic? YES
[2023-06-08 20:10] LABS: Influenza A QL RT-PCR Negative (Negative); Influenza B QL RT-PCR Negative (Negative); RSV RNA, RT-PCR Negative (Negative); SARS-CoV-2 RNA PCR Positive (Negative)
[2023-06-08] MEDS: SODIUM CHLORIDE 0.9% IV 2,000 ML 999 ML IV CONT (20:14)
[2023-06-08] MEDS: POTASSIUM CHLORIDE 20 MEQ PACKET (FOR LIQUID) 40 MEQ PO (20:14)
--- NOTE | 2023-06-08 21:12 | ED.GENADULT ---
HPI - General Adult General Chief complaint: Recheck/Abnormal Lab/Rx Stated complaint: low blood pressure/weak Time Seen by Provider: 06/08/23 19:05 History of Present Illness HPI narrative: This is a 73-year-old female sent from her primary care physician for low blood pressure. Patient says that on Thursday she had some subjective fevers, general weakness, dizziness, . She felt much better on Thursday and went to see her doctor on Thursday. While at her physician's office she had a blood pressure of 80/60 and 1 of her arms. She was sent to the emergency room for further evaluation. This time patient says that she feels well. She denies URI symptoms, chest pain difficulty breathing abdominal pain nausea vomiting or diarrhea. Related Data Home Medications Medication Instructions Recorded Confirmed ascorbate calcium (vitamin C) 500 500 mg PO DAILY 09/26/19 04/09/23 mg tablet atorvastatin 10 mg tablet 10 mg PO DAILY 03/23/23 04/09/23 lisinopril 10 10 tablet PO DAILY 03/23/23 04/09/23 mg-hydrochlorothiazide 12.5 mg tablet Allergies Allergy/AdvReac Type Severity Reaction Status Date / Time nifedipine AdvReac Intermediate feet Verified 06/08/23 14:22 swelling PMFSH Past Medical History Medical History CHANTAL (acute kidney injury) Depression with anxiety Encounter for surgical aftercare following surgery on the digestive system Essential (primary) hypertension Mixed hyperlipidemia Perforated appendix Smoker Quit May, Surgical History Surgical History H/O cataract extraction H/O tubal ligation Hx of tonsillectomy S/P laparoscopic appendectomy Family History Family History Mother Diabetes mellitus Hypertension Family history of coronary artery disease Father Family history of malignant neoplasm of urinary bladder Social History Social History Social History: She lives home alone. She is . She has 1 child. The patient still continues to work at [employer]. She is 1 of the recruiters. Code status full code Smoking packs per day: 0.5 Smoking cigarettes per day: 10.0 Years smoked: 30 Smoking pack-years: 15.00 Smoking status: Current some day smoker Tobacco type: cigarettes Additional smoking assessment comments: pt states social smoking Alcohol intake: former Drinks per week: 4 Substance use: never Lack of Transportation: No Lack of Food: Never True Current Housing: I Have Housing Concerned About Future Housing: No Difficulty Paying Gas/Electric Bills: No Difficulty Paying for Meds: No Currently Unemployed: No Education: High School Diploma/GED Gender identity (if verbalized by the patient): Female Spiritual care concerns: No Exam Narrative: APPEARANCE: No apparent distress. pleasant polite Head: atraumatic. EYES: EOMI, NOSE: Atraumatic NECK: Trachea midline RESPIRATORY: No increased rate of breathing, clear to auscultation CARDIOVASCULAR: RRR, no peripheral edema ABDOMINAL: Non-distended, soft nontender no guarding rebound MUSCULOSKELETAl: No obvious deformities NEURO: Alert. Moving 4/4 extremities SKIN:: Warm, dry. Normal color PSYCHIATRIC: Normal affect Course Vital Signs Vital signs: Vital Signs Temperature 97.8 F 06/08/23 16:54 Pulse Rate 84 06/08/23 16:54 Respiratory Rate 20 06/08/23 16:54 Blood Pressure 117/62 06/08/23 16:54 Pulse Oximetry 100 06/08/23 16:54 Oxygen Delivery Room Air 06/08/23 16:54 Temperature 97.8 F 06/08/23 16:54 Pulse Rate 76 06/08/23 20:01 Respiratory Rate 16 06/08/23 20:01 Blood Pressure 136/63 06/08/23 20:01 Pulse Oximetry 96 06/08/23 19:15 Oxygen Delivery Room Air 06/08/23 16:54 Medical Decision Making MDM Narrative Medical decision making narrative: -P
== END 2023-06-08 22:15 | disposition home or self-care (01) ==
PROVIDERS: Emergency Medicine; Emergency Provider Emergency Medicine; PCP Emergency Medicine
DX: U07.1 COVID-19 (principal); E86.0 Dehydration; E87.6 Hypokalemia; I10 Essential (primary) hypertension; E78.2 Mixed hyperlipidemia; F17.210 Nicotine dependence, cigarettes, uncomplicated; Z98.49 Cataract extraction status, unspecified eye; R94.31 Abnormal electrocardiogram [ECG] [EKG]
CPT/HCPCS: 36415; 71046; 80053; 81001; 85025; 87637; 93005; 96360; 96361; 99283; A9270; J7030

== ENCOUNTER 2024-05-24 03:49 | Emergency (ER) | payer OTHER, SELFPAY ==
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
[2024-05-24 03:49] VITALS: BP 149/66; PULSE 75; RESP 18; TEMP 36.4; O2SAT 98
[2024-05-24] MEDS: TETANUS,DIPHTHERIA,AC PERTUSSIS ADULT (0.5 ML) BOOSTRIX IM (04:17)
[2024-05-24] MEDS: HYDROcodone/acetaminophen (*CRX) 5-325 MG TABLET 1 TAB PO (05:22)
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
[2024-05-24 05:41] LABS: White Blood Count 12.6 K/mm3 (4.5-10.0)
[2024-05-24 05:42] LABS: Basophils Absolute Auto 0.1 K/mm3 (0.0-0.1); Basophils Percent Auto 0.5 % (0.2-1.2); Eosinophils Absolute Auto 0.1 K/mm3 (0-0.3); Eosinophils Percent Auto 0.9 % (0-4.4); Hematocrit 41.2 % (37.0-47.0); Hemoglobin 13.2 g/dL (12.0-15.0); Immature Granulocyte Absolute 0.09 K/mm3 (0.00-0.031); Immature Granulocyte Percent A 0.7 % (0-0.5); Lymphocytes Absolute Auto 1.18 K/mm3 (0.9-3.2); Lymphocytes Percent Auto 9.3 % (18.3-44.2); Mean Corpuscular Volume 96.7 fl (80-100); Mean Platelet Volume 10.2 fl (7.4-10.4); Monocytes Absolute Auto 0.7 K/mm3 (0.1-0.6); Monocytes Percent Auto 5.7 % (2.6-8.5); Neutrophils Absolute Auto 10.5 K/mm3 (1.3-6.7); Neutrophils Percent Auto 82.9 % (45.5-73.1); Platelet Count Result 216 k/mm3 (150-375); Red Blood Count 4.26 M/mm3 (4.2-5.4); Red Cell Distribution Width 13.1 % (11.5-14.5)
[2024-05-24 05:49] VITALS: BP 176/75; PULSE 66; RESP 14; O2SAT 100
[2024-05-24] MEDS: MORPHINE SULFATE (*CRX) 4 MG/ML INJ IV PUSH (05:50)
[2024-05-24 05:52] LABS: Estimated CRCL calculation 31 ml/min; Estimated Glomerular Filt Rate 44
[2024-05-24 05:58] LABS: Alanine Aminotransferase 16 U/L (6-35); Albumin Level 4.4 g/dL (3.5-5.1); Alkaline Phosphatase 102 U/L (38-126); Anion Gap 10 mmol/L (4-12); Aspartate Amino Transferase 37 U/L (14-36); Bilirubin,Total 0.5 mg/dL (0.2-1.3); Blood Urea Nitrogen 20 mg/dL (7-17); Calcium 9.3 mg/dL (8.4-10.2); Carbon Dioxide 22 mmol/L (22-30); Chloride 111 mmol/L (98-107); Estimated CRCL calculation 33 ml/min; Estimated Glomerular Filt Rate 48; Glucose 115 mg/dL (65-110); Potassium 3.8 mmol/L (3.4-5.0); Sodium 143 mmol/L (137-145)
[2024-05-24 06:06] LABS: Add Urine Microscopic? YES; Appearance Urine Clear (Clear); Bacteria Urine 4+ /hpf; Bilirubin Urine Negative (Negative); Blood Urine Negative (Negative); Color Urine Yellow (Yellow); Glucose Urine UA Negative (Negative); Ketones Urine Negative (Negative); Leukocyte Esterase Ur 2+ LEU/UL (Negative); Nitrate Urine Positive (Negative); Non Pathogenic Casts 0-2; Protein Urine Negative (Negative); RBC Urine 0-2 /hpf (0-2); Specific Grav Ur 1.015 (1.001-1.035); Squamous Epithelial Cell Urine Occasional /hpf (Few); WBC Urine 21-50 /hpf (0-3); pH Urine 6.5 (5.0-9.0)
--- NOTE | 2024-05-24 07:00 | PC.NURSE ---
Attempted to ambulate pt with walker and one assist. Pt was able to sit up in stretcher but could not bare weight. Pt stated her pain was too severe and sat back on stretcher.
[2024-05-24 07:04] VITALS: BP 152/77; PULSE 77; RESP 15; O2SAT 97
--- NOTE | 2024-05-24 07:18 | PC.NURSE ---
Report called to Thelma CARRERO at [facility] Emergency Dept.
[2024-05-24 08:18] VITALS: BP 132/80; PULSE 78; RESP 16; O2SAT 100
== END 2024-05-24 08:20 | disposition short-term general hospital (02) ==
PROVIDERS: Emergency Provider Emergency Medicine; PCP Emergency Medicine
DX: S22.089A Unspecified fracture of T11-T12 vertebra, initial encounter for closed fracture (principal); S51.812A Laceration without foreign body of left forearm, initial encounter; I10 Essential (primary) hypertension; E78.2 Mixed hyperlipidemia; F17.210 Nicotine dependence, cigarettes, uncomplicated; Z23 Encounter for immunization; V89.0XXA Person injured in unspecified motor-vehicle accident, nontraffic, initial encounter
CPT/HCPCS: 36415; 74177; 80053; 81001; 85025; 87077; 87086; 87088; 87186; 90471; 90715; 96374; 99285; A9270; J2270; Q9967

== ENCOUNTER 2024-07-06 14:49 | Outpatient (CLI) | payer OTHER, SELFPAY ==
[2024-07-06 19:04] LABS: Add Urine Microscopic? YES; Appearance Urine Turbid (Clear); Bacteria Urine 4+ /hpf; Bilirubin Urine Negative (Negative); Blood Urine Negative (Negative); Color Urine Yellow (Yellow); Glucose Urine UA Negative (Negative); Ketones Urine Negative (Negative); Leukocyte Esterase Ur 2+ LEU/UL (Negative); Nitrate Urine Positive (Negative); Non Pathogenic Casts 0-2; Protein Urine Trace mg/dL (Negative); RBC Urine 0-2 /hpf (0-2); Specific Grav Ur 1.023 (1.001-1.035); Squamous Epithelial Cell Urine Many /hpf (Few); Urobilinogen Urine 0.2 mg/dL (<2.0); WBC Urine >100 /hpf (0-3); pH Urine 5.5 (5.0-9.0)
[2024-07-06 19:41] LABS: Free T4 Free Thyroxine 0.66 ng/mL (0.78-2.19)
== END 2024-07-06 14:50 | disposition home or self-care (01) ==
LOC: ANHGOSHLAB 14:51
PROVIDERS: PCP Emergency Medicine; Visit Provider Emergency Medicine
DX: E03.9 Hypothyroidism, unspecified (principal); N39.0 Urinary tract infection, site not specified
CPT/HCPCS: 36415; 81001; 84439; 84443; 84480; 87077; 87086; 87088; 87186

== ENCOUNTER 2024-10-20 13:35 | Outpatient (CLI) | payer OTHER, SELFPAY ==
--- NOTE | ~2024-10-20 | XR_ITS ---
CHEST RADIOGRAPH, PA AND LATERAL CLINICAL HISTORY: R05.9 - Cough, unspecified . COMPARISON: 06/08/2023 TECHNIQUE: PA and lateral views of the chest. FINDINGS The cardiomediastinal silhouette is unremarkable. Elevation of the left hemidiaphragm with adjacent compressive atelectasis, unchanged from prior. The remainder of the lungs are clear. Visualized osseous structures and soft tissues are unremarkable. IMPRESSION: No focal infiltrate or effusion. Reviewed, dictated and finalized at location A. [employer]
== END 2024-10-20 13:36 | disposition home or self-care (01) ==
LOC: GOSHIMG 13:35
PROVIDERS: PCP Student in an Organized Health Care Education/Training Program; Visit Provider Student in an Organized Health Care Education/Training Program
DX: R05.9 Cough, unspecified (principal)
CPT/HCPCS: 71046

== ENCOUNTER 2025-01-12 08:32 | Outpatient (CLI) | payer OTHER, SELFPAY ==
--- OUTSIDE RECORDS SUMMARY | 2025-01-12 08:45 | XMS_ITS | Clinical Summary ---
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 06/17/24
--- OUTSIDE RECORDS SUMMARY | 2025-01-12 08:45 | XMS_ITS | Clinical Summary ---
Author Organization [facility] Address [address] [place] [address] Care Team Providers Care Coyote Hunter Name Role Phone Unavailable Primary Care Provider Unavailabl e Social History Tobacco Use Types Packs/Day Years Used Date Smoking Tobacco: Never Assessed Comments Unknown Sex and Gender Information Value Date Recorded Sex Assigned at Not on file Legal Sex Female 7:42 PM CDT Gender Identity Not on file Sexual Orientation Not on file Plan of Treatment Health Maintenance Due Date Last Done Comments Hepatitis C 1966 DTaP, Tdap and Td Vaccines ( 1 - Tdap) 1967 Zoster Vaccines (1 of 2) 1998 Dexa Scan (General) 2013 Pneumococcal Vaccine: 65+ Ye ars (1 of 1 - PCV) 2013 RSV Immunization or 60+ Years (1 - 1-dose 75+ series) 2023 COVID-19 Vaccine (2023-2 5 season) 2024 Influenza Adult (#1) 2024 Meningococcal B Vaccine Aged Out No l onger eligible based on patient's age to complete this topic Meningococcal Vaccine Aged Out No brittany faye eligible based on patient's age to complete this topic RSV Immunizations Under 20 Months Aged Out No longer eligible based on patient's age to complete this topic
[2025-01-12 19:47] LABS: Potassium 3.7 mmol/L (3.4-5.0)
[2025-01-12 19:49] LABS: Alanine Aminotransferase 14 U/L (6-35); Alkaline Phosphatase 79 U/L (38-126); Anion Gap 10 mmol/L (4-12); Aspartate Amino Transferase 25 U/L (14-36); Bilirubin,Total 0.6 mg/dL (0.2-1.3); Blood Urea Nitrogen 20 mg/dL (7-17); Calcium 9.2 mg/dL (8.4-10.2); Carbon Dioxide 23 mmol/L (22-30); Chloride 109 mmol/L (98-107); Cholesterol 119 mg/dL (0-200); Estimated Glomerular Filt Rate 46; Glucose 74 mg/dL (65-110); HDL Direct 50 mg/dL; Sodium 142 mmol/L (137-145); Triglycerides 69 mg/dL (<150)
[2025-01-12 19:58] LABS: LDL Cholesterol Direct 53 mg/dL
[2025-01-12 20:37] LABS: Hemoglobin A1C 5.2 % (<5.7)
== END 2025-01-12 08:33 | disposition home or self-care (01) ==
LOC: ANHGOSHLAB 08:33
PROVIDERS: PCP Family Medicine; Visit Provider Student in an Organized Health Care Education/Training Program
DX: E03.9 Hypothyroidism, unspecified (principal); E78.2 Mixed hyperlipidemia; R73.9 Hyperglycemia, unspecified; I12.9 Hypertensive chronic kidney disease with stage 1 through stage 4 chronic kidney disease, or unspecified chronic kidney disease; N18.32 Chronic kidney disease, stage 3b
CPT/HCPCS: 36415; 80053; 80061; 83036; 84443

== ENCOUNTER 2025-03-20 14:31 | Outpatient (CLI) | payer OTHER, SELFPAY ==
--- OUTSIDE RECORDS SUMMARY | 2025-03-20 14:47 | XMS_ITS | Clinical Summary ---
Author Organization [facility] [employer] Address [address] [place] [address] Care Team Providers Care Risk Lead Name Role Phone Henrry Ordonez MD Primary Care Provider [phone] Source Comments [facility] [employer],non-owned Affiliates and Associated Physician Practices is amultiple site organization consisting of ambulatory clinics and hospital sitesin [place], [place], [place] and [place]. This disclosure is being madepursuant to the Care Everywhere program and may not contain all information available regarding this patient. Last updated 18.[employer] Allergies No known active allergies Medications * Be aware that medications may not be up to date on this document. Alwaysverify current medications with the patient. topiramate (Topamax) 25 MG tablet Take 1 (one) tablet by mouth 2 times daily 4 Active levothyroxine (Synthroid) 88 MCG tablet Take 1 (one) tablet by mouth once daily 4 Active clonazePAM (KlonoPIN) 1 MG tablet Take 1 (one) tablet by mouth 4 Active citalopram (CeleXA) 20 MG tablet Take 1 (one) tablet by mouth once daily 4 Active atorvastatin (Lipitor) 10 MG tablet Take 1 (one) tablet by mouth once daily 4 Active amitriptyline (Elavil) 25 MG tablet Take 1 (one) tablet by mouth at bedtime 4 Active lisinopril (Prinivil; Zestril) 20 MG tablet Take 1 (one) tablet by mouth once daily 4 Active Additional Information Patient taking differently: 30 mgOral DAILY, Reported on 01/06/2025 lidocaine (Lidoderm) 5 % patch Apply 1 (one) patch to skin every 24 hours Apply patch to most painful area and remove after 12 hours. May reapply a new patch 12 hours later. 4 Active methocarbamol (Robaxin) 750 MG tabletIndication s:S/P kyphoplasty Take 1 (one) tablet by mouth 2 times daily as needed for Muscle Spasms 60 tablet 1 Active metoprolol succinate XL 24hr (Toprol XL) 25 MG tablet Take 0.5 (one-half) tablet by mouth once daily Active Active Problems Problem Noted Date Diagnosed Date Coronary artery disease involving [place] coronar y artery 06/17/2024 Assessment & Plan [...] Description 01/06/2025 10:30 AM CDT Office Visit [facility] - Cardiology [address] [facility], [place] [id number] [place] [phone] Anat Bauer 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 Carolynn Gallagher APRN-CHRISTIAN Coronary artery disease involving [place] coronary artery of [place] heart without angina pectoris (Primary Dx); Regional wall motion abnormality of heart; Hyperlipidemia, unspecified hyperlipidemia type; Essential hypertension 01/06/2025 9:00 AM CDT Ancillary Procedure [facility] - Echosonography [address] [facility], [facility] [address] [place] [id number] Abnormal echocardiogram; Coronary artery disease involving [place] coronary artery of [place] heart without angina pectoris 01/06/2025 Travel from Last 3 Months Immunizations Immunization Administration Dates Next Due TDAP (7yrs+) 05/24/2024(Deferred: [...] care, and heating? Not very hard 05/26/2024 [facility] - Occupational Stress Questionnaire Answer Date Recorded [...] place to sleep or slept in a long term (including now)? No 05/26/2024 Comments Unknown Sex and Gender Information Value Date Recorded Sex Assigned at Not on file Legal Sex Female 10:09 AM CDT Gender Identity Not on file Sexual [...] 8:46 AM CDT Height 160 cm (5' 3) 01/06/2025 8:46 AM CDT Body Mass Index 25.15 01/06/2025 8:46 AM CDT Plan of Treatment Upcoming Encounters Date Type Department Care Team (Late st Contact Info) Description 07/05/2025 9:00 AM CDT Office Visit [facility] - Cardiology [address] [facility], [facility] [address] [place] [address] Azucena Moura DO [address] [facility] [address] [facility] [place] [address] Health Maintenance Due Date Last Done Comments BONE DENSITY TESTING 1950 HEPATITIS C SCREENING 05/17/1966 DTAP/TDAP/TD VACCINES (1 - Tdap) 1967 PNEUMOCOCCAL VACCINE 50+ (1 of 2 - PCV) 1967 ZOSTER VACCINE (1 of 2) 1998 Respiratory Syncytial Virus (RSV) Vaccine Pt: or over 60 yrs (1 - 1-dose 75+ series) 2023 COVID-19 VACCINE ( - season) 2024 08/22/2023, 07/19/2022, 08/30/2021, Additional history exists DEPRESSION SCREENING 10/19/2024 INFLUENZA VACCINE (Season Ended) 2025 07/29/2023, 07/19/2022, 08/05/2021, Additional history exists HEPATITIS B VACCINE Aged Out No longe [...] this topic Medical Devices Implanted Type Area Telecommunications Administrator Device Identifier Shelf Expiration Date Model / Serial / Lot Kit Bone Cmnt Vertaplex Hv Autoplex Wo Implanted:Qty: 1 on 05/29/2024 by Ron Baum MD at [facility] N/A: Spine [place] Spine [id number] / / Description:T12 Kit Spnl 5.8mm Spinejack Implanted:Qty: 1 on 05/29/2024 by Ron Baum MD at [facility] N/A: Spine [employer]iley Spine [id number] 2 / / Description:t12 Procedures Procedure Name Priority Date/Time Associated Diagnosis Comments ECHO COMPLETE W CONTRAST Routine 01/06/2025 9:56 AM CDT Abnormal echocardiogram Coronary artery disease involving [place] coronary artery of [place] heart without angina pectoris from Last 3 [...] LV biplane EF 71.566 % [facility] A2C EF 68.099 % [facility] I PACS LV A4C EF 72.839 % [facility] I PACS LV EDV A2C 65.445 ml [facility] CV FU JI PACS LV EDV A4C 89.043 ml [facility] CV FU JI PACS LV ESV A2C 20.877 ml [facility] CV FU JI PACS LV ESV A4C 24.185 ml [facility] CV FU JI PACS LVOT pk grad 6.385 mmHg [facility] LVOT pk gianni 131.549 cm/s [facility] CV F U PACS LVOT VTI 29.05 cm [facility] I PACS RVIDd 2.924 cm [facility] I PACS RVOT pk gianni 62.317 cm/s [facility] CV F U PACS RVOT VTI 14.973 cm [facility] I PACS LA vol BP 56.354 ml [facility] I PACS RA area 12.111 cm [facility] AV area pk gianni 2.964 cm [facility] AV area cont VTI 2.912 cm [facility] P[facility] AR DECEL TIME 2.013 s [facility] AV PHT 0.584 s [facility] I PACS AV pk gianni regurg 478.042 cm/s [facility] AV pk grad 8.03 mmHg [facility] CV FU PACS AV mn grad 4.651 mmHg [facility] CV FU PACS AV pk gianni 141.686 cm/s [facility] I PACS AV VTI 31.848 cm [facility] I PACS MV A pk gianni 85.462 cm/s [facility] CV F U PACS MV E pk gianni 87.222 cm/s [facility] CV F U PACS MV E' lateral gianni 7.701 cm/s SS [facility] P[facility] MV mn grad 1.304 mmHg [facility] CV FU PACS MV VTI 33.157 cm [facility] I PACS PV pk gianni 76.066 cm/s [facility] I PACS TAPSE 1.586 cm SSM CV FUJ I PACS TR pk gianni 206.466 cm/s SSM CV FUJ I PACS Ascending aorta 3.034 cm SSM CV FUJI PACS IVC Diam Expiration 1.262 cm SSM CV FUJI PACS Sinus of Valsalva 3.053 cm SS M CV FUJI PACS Anatomical Region Laterality Modality Ultrasound 01/06/2025 [...] 9:17 AM Patient Status: O Study Site: [facility] Primary Location: [facility] Info Exam Type: ECHO COMPLETE W CONTRAST Indications R93.1 - Abnormal echocardiogram I25.10 - Coronary artery disease involving [place] coronary artery of [place] heart without angina pectoris Procedure(s) * A complete 2D, color Doppler, and spectral Doppler transthoracic echocardiogram was performed. * An Ultrasound Enhancing Agent (UEA) was utilized to enhance endocardial definition and opacify the left ventricle. Contrast/Agitated Saline Contrast / Saline: Definity Amount: 1.50 ml Reaction to Contrast: no Staff Referring Physician: Anat Bauer Ordering Provider: Anat Bauer Nursery Manager: Monika Moore Left Ventricle The left [...] 9:17 AM Patient Status: O Study Site: [facility] Primary Location: [facility] EStudy Info Exam Type: ECHO COMPLETE W CONTRAST Indications R93.1 - Abnormal echocardiogram I25.10 - Coronary artery disease involving [place] coronary artery of [place] heart without angina pectoris Procedure(s) * A complete 2D, color Doppler, and spectral Doppler transthoracic echocardiogram was performed. * An Ultrasound Enhancing Agent (UEA) was utilized to enhanceendocardial definition and opacify the left ventricle. 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 Advance Directives * Full Code (Latest Code Status on File) Date Activated Date Inactivated Comments 05/24/2024 6:26 PM 06/07/2024 6:25 PM Care Teams Risk Lead Relationship Specialty Start Date End Date Henrry Ordonez MD [address] [place] [phone] PCP - General Family Medicine 01/06/25 Destin Brooks [address] [place] [address] Primary Care Provider 06/17/24
[2025-03-20 20:25] LABS: Alanine Aminotransferase 16 U/L (6-35); Alkaline Phosphatase 65 U/L (38-126); Anion Gap 7 mmol/L (4-12); Aspartate Amino Transferase 50 U/L (14-36); Bilirubin,Total 0.3 mg/dL (0.2-1.3); Blood Urea Nitrogen 35 mg/dL (7-17); Calcium 9.4 mg/dL (8.4-10.2); Carbon Dioxide 26 mmol/L (22-30); Chloride 108 mmol/L (98-107); Estimated Glomerular Filt Rate 48; Glucose 110 mg/dL (65-110); Potassium 3.8 mmol/L (3.4-5.0); Sodium 141 mmol/L (137-145)
== END 2025-03-20 14:32 | disposition home or self-care (01) ==
LOC: ANHGOSHLAB 14:32
PROVIDERS: PCP Family Medicine; Visit Provider Nurse Practitioner Family
DX: N18.32 Chronic kidney disease, stage 3b (principal)
CPT/HCPCS: 36415; 80053

== ENCOUNTER 2025-03-20 14:49 | Outpatient (CLI) | payer OTHER, SELFPAY ==
--- NOTE | ~2025-03-20 | XR_ITS ---
Lumbosacral Spine: AP and lateral views Clinical History: Pain Findings: The normal lordotic curve is maintained. T12 compression fracture present. No fracture or s ubluxation seen in the lumbar spine. There is severe facet arthropathy throughout the lumbar spine, w orst at L4-L5 and L5-S1. There is mild degenerative disc change throughout the lumbar spine. The sac roiliac joints are normally outlined. Impression: Moderate degenerative spondylosis overall, with extensive facet arthropathy in particular throughout the lumbar spine. Prior T12 vertebroplasty. Reviewed, dictated and finalized at location M. Impression: Moderate degenerative spondylosis overall, with extensive facet arthropathy in particular throughout the lumbar spine. Prior T12 vertebroplasty.
== END 2025-03-20 14:50 | disposition home or self-care (01) ==
LOC: GOSHIMG 14:49
PROVIDERS: PCP Nurse Practitioner Family; Visit Provider Nurse Practitioner Family
DX: M47.896 Other spondylosis, lumbar region (principal)
CPT/HCPCS: 72100

== ENCOUNTER 2025-06-16 10:26 | Outpatient (CLI) | payer MEDICARE, SELFPAY ==
--- NOTE | ~2025-06-16 | XR_ITS ---
EXAM/ PROCEDURE: XR shoulder RT min 2V - 06/16/2025 10:42 CDT HISTORY: 75 years old Female with Pain in right shoulder x 2 months COMPARISON: None available TECHNIQUE: Three view(s) FINDINGS/ IMPRESSION: There are no fractures or dislocations.Joint space narrowing, subchondral sclerosis, subchondral cyst formation and osteophyte formation, compatible with mild osteoarthritis. Reviewed, dictated and finalized at location N.
== END 2025-06-16 10:27 | disposition home or self-care (01) ==
LOC: GOSHIMG 10:30
PROVIDERS: PCP Nurse Practitioner Family; Visit Provider Nurse Practitioner Family
DX: M25.511 Pain in right shoulder (principal)
CPT/HCPCS: 73030

== ENCOUNTER 2025-08-14 15:06 | Outpatient (CLI) | payer MEDICARE, SELFPAY ==
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
[2025-08-14 18:45] LABS: Alanine Aminotransferase 13 U/L (6-35); Albumin Level 4.4 g/dL (3.5-5.1); Alkaline Phosphatase 69 U/L (38-126); Anion Gap 7 mmol/L (4-12); Aspartate Amino Transferase 39 U/L (14-36); Bilirubin,Total 0.4 mg/dL (0.2-1.3); Blood Urea Nitrogen 27 mg/dL (7-17); Calcium 9.4 mg/dL (8.4-10.2); Carbon Dioxide 27 mmol/L (22-30); Chloride 105 mmol/L (98-107); Cholesterol 145 mg/dL (0-200); Estimated Glomerular Filt Rate 42; Glucose 92 mg/dL (65-110); HDL Direct 57 mg/dL; Potassium 4.0 mmol/L (3.4-5.0); Sodium 139 mmol/L (137-145); Total Protein 7.1 g/dL (6.3-8.2); Triglycerides 113 mg/dL (<150)
[2025-08-14 19:16] LABS: Thyroid Stimulating Hormone 1.030 uIU/mL (0.465-4.680)
[2025-08-14 19:20] LABS: Hemoglobin A1C 5.2 % (<5.7)
== END 2025-08-14 15:07 | disposition home or self-care (01) ==
PROVIDERS: PCP Family Medicine; Visit Provider Family Medicine
DX: E03.9 Hypothyroidism, unspecified (principal); E78.2 Mixed hyperlipidemia; N18.32 Chronic kidney disease, stage 3b; R73.9 Hyperglycemia, unspecified
CPT/HCPCS: 36415; 80053; 80061; 83036; 84443